=== PATIENT | female | born 1970 | race Caucasian/White ===

== ENCOUNTER 2023-06-28 07:15 | Outpatient (OUT) | payer OTHER, SELFPAY ==
--- NOTE | 2023-06-28 07:34 | CT_ITS ---
[address] [address] Patient Name: MARIN CORREA MRN: [id number] date: 1970 Sex: F Assigned Patient Location: MAMMO Current Patient Location: Accession/Order Number: [id number] Exam Date: 06/28/2023 07:55 Report Date: 07/01/2023 20:44 At the request of: DALTON MCCLELLAN Procedure: CT lung screening low-dose EXAMINATION: CT lung screening low-dose HISTORY: Well Adult, Z00.00 COMPARISON: No relevant comparison available. TECHNIQUE: Axial, Coronal, and Sagittal images were created without the administration of IV contrast material. Dose reduction techniques were achieved by using automated exposure control and/or adjustment of mA and/or kV according to patient size and/or use of iterative reconstruction technique. FINDINGS: LUNGS: Collection of multiple small calcified and noncalcified nodules within posterior lateral left lung base measuring up to 5 mm. Slightly more cephalad but still within basilar segments of left lower lobe is a 10 mm nodule with central calcification. No acute infiltrates or significant chronic interstitial changes. PLEURA: No mass, effusion, or pneumothorax. VASCULATURE: No abnormality. ALISA: Calcified left hilar lymph nodes suggestive of chronic granulomatous disease. MEDIASTINUM: No mass or pathologic adenopathy. CARDIAC: Mild atherosclerotic coronary artery disease. No pericardial effusion. AORTA: No aneurysm or dissection. CHEST WALL: No mass or axillary adenopathy BONES: No bone lesion or fracture. LIMITED ABDOMEN: No suspicious findings. Limited images of the upper abdomen. OTHER: Negative. CT/CT lung screening low-dose IMPRESSION: 1. Lung-RADS Category 3- Probably benign. Probably benign finding(s)- short term follow up suggested; includes nodules with a low likelihood of becoming a clinically active cancer. Six month LDCT. 2. Left lung base findings favor granulomatous reactions. Follow-up CT chest in 3 months is recommended to document stability. Electronically authenticated by: JOHN LONDONO Date: 07/01/2023 20:44
[2023-06-28 07:40] LABS: Basophils Absolute Auto 0.1 10^3/uL (0.0-0.1); Basophils Percent Auto 0.8 % (0.2-2.0); Eosinophils Absolute Auto 0.2 10^3/uL (0.0-0.7); Eosinophils Percent Auto 2.3 % (0.9-7.0); Hematocrit 43.3 % (36.0-48.0); Hemoglobin 14.2 g/dL (12.0-16.0); Immature Granulocytes Abs Auto 0.02 10^3/uL (0.00-0.03); Immature Granulocytes Pct Auto 0.2 % (0.0-0.5); Lymphocytes Absolute Auto 3.4 10^3/uL (1.2-3.8); Lymphocytes Percent Auto 36.7 % (20.5-60.0); Mean Corpuscular HGB Conc 32.8 g/dL (29.9-35.2); Mean Corpuscular Hemoglobin 30.3 pg (26.7-34.0); Mean Corpuscular Volume 92.5 fL (81.0-99.0); Mean Platelet Volume 9.6 fL (9.5-13.5); Monocytes Absolute Auto 0.7 10^3/uL (0.3-0.8); Monocytes Percent Auto 7.2 % (1.7-12.0); Neutrophils Absolute Auto 4.9 10^3/uL (1.4-6.5); Neutrophils Percent Auto 52.8 % (43.0-75.0); Platelet Count 224 10^3/uL (150-450); Red Blood Count 4.68 10^6/uL (4.20-5.40); Red Cell Distribution Width 12.1 % (11.0-15.0); White Blood Count 9.2 10^3/uL (4.0-11.0)
--- NOTE | 2023-06-28 07:55 | MM_ITS ---
Patient Name: MARIN CORREA MR#: [id number] : 1970 Exam Date: 06/28/2023 Ordering Doctor: DR Ever Palomares . RADIOLOGY REPORT PROCEDURE: MM TOMOSYNTHESIS SCREENING BI COMPARISON: None. INDICATIONS: Well Adult, Z00.00 Calculator Name NCI Breast Cancer Risk Assessment Tool 5 Year Breast Cancer Risk 0.90% Lifetime Breast Cancer Risk 6.60% Personal Breast Cancer No Personal Ovarian Cancer No Treatments None Family Cancers None LOCATION: [facility] BREAST COMPOSITION: Heterogeneously dense,which may obscure small masses. FINDINGS: DIAGNOSTIC CATEGORY 1--NEGATIVE. RIGHT BREAST: No significant suspicious finding. LEFT BREAST: No significant suspicious finding. RECOMMENDATIONS: ROUTINE MAMMOGRAM AND CLINICAL EVALUATION IN 12 MONTHS. PLEASE NOTE: A NORMAL MAMMOGRAM DOES NOT EXCLUDE THE POSSIBILITY OF BREAST CANCER. A CLINICALLY SUSPICIOUS PALPABLE LUMP SHOULD BE BIOPSIED. Dictated by: Cecil Aranda M.D. on 06/28/2023 at 11:55 Approved by: Cecil Aranda M.D. on 06/28/2023 at 11:59
[2023-06-28 08:36] LABS: Alanine Aminotransferase 21 U/L (14-59); Albumin Level 3.6 g/dL (3.4-5.0); Alkaline Phosphatase 66 U/L (46-116); Anion Gap 11.4; Aspartate Amino Transferase 11 U/L (15-37); BUN Creatinine Ratio 15.7; Bilirubin Total 0.6 mg/dL (0.2-1.0); Calcium 9.1 mg/dL (8.5-10.1); Carbon Dioxide 30.2 mmol/L (21.0-32.0); Chloride 103 mmol/L (98-107); Cholesterol 173 mg/dL (<=200); Estimated GFR (African America >60 (>=60); Estimated GFR (Non-African Ame >60 (>=60); Free T3 2.61 pg/mL (2.18-3.98); Globulin 3.5 g/dL; Glucose 193 mg/dL (74-106); HDL Cholesterol 43 mg/dL (40-60); Potassium 3.6 mmol/L (3.5-5.1); Sodium 141 mmol/L (136-145); Thyroid Stimulating Hormone 3.388 uIU/mL (0.358-3.740); Total Protein 7.1 g/dL (6.4-8.2); Triglycerides 154 mg/dL (<=150); VLDL CHOLESTEROL 30.8 mg/dL
[2023-06-28 10:01] LABS: Estimated Average Glucose 177 mg/dL; Glycohemoglobin A1C 7.8 % (4.5-6.2)
== END 2023-06-28 07:16 | disposition home or self-care (01) ==
LOC: MAMMO 07:18
PROVIDERS: PCP Family Medicine; Visit Provider Family Medicine
DX: Z00.00 Encounter for general adult medical examination without abnormal findings (principal); Z12.31 Encounter for screening mammogram for malignant neoplasm of breast; F17.219 Nicotine dependence, cigarettes, with unspecified nicotine-induced disorders
CPT/HCPCS: 36415; 71271; 77063; 77067; 80053; 80061; 82306; 83036; 83525; 83540; 84436; 84443; 84481; 85025

== ENCOUNTER 2023-09-16 06:36 | Outpatient (OUT) | payer OTHER, SELFPAY ==
--- OUTSIDE RECORDS SUMMARY | 2023-09-16 06:40 | XMS_ITS | CCD ---
Author Name Unknown Address [address] [place] [address] [address] [place] [id number] Organization [facility] Care Team Providers Care Recreation Leader Name Role Phone Dalton Palomares Primary Care Physician [phone] VY, DR HOFFMAN Admitting Unavailable HOY, DR HOFFMAN Attending Unavailable HOY, DR HOFFMAN Primary Care Unavailable HOY, DR HOFFMAN Consulting Unavailable HOY, DR HOFFMAN Admitting Unavailable HOY, DR HOFFMAN Attending Unavailable HOY, DR HOFFMAN Primary Care Unavailable HOY, DR HOFFMAN Consulting Unavailable ZIEBER, DR JOHN Villalta Consulting Unavailable HOY, DR HOFFMAN Admitting Unavailable HOY, DR HOFFMAN Attending Unavailable HOY, DR HOFFMAN Primary Care Unavailable HOY, DR HOFFMAN Consulting Unavailable KLIPPER, TG Consulting Unavailable Pocos, Tg Olivera Attending Unavailable Pocos, Tg Olivera Admitting Unavailable Pocos, Tg Olivera Referring Unavailable Dolce, Yogi Varela Referring Unavailable Dolce, Yogi Varela Attending Unavailable Dolce, Yogi Varela Admitting Unavailable Hajdari, Melba H Attending Unavailable DOLCE, YOGI Varela Attending Unavailable Allergies Allergy Classification Reported Allergen(s) Allergy Type Date of Onset Reaction(s) Facility (4 sources) Codeine; Translations: [codeine] Drug Allergy [facility] (4 sources) Penicillins; Translations: [penicillins] Drug allergy codeine [facility] Medications Current Medications Medication Drug Class(es) Dates Sig (Normalized) Sig (Original) acetaminophen 325 mg / HYDROcodone bitartrate 5 mg oral tablet (3 sources) Opioid Agonist Start: 03-26-2018 [place] 325 mg-5 mg oral tablet 1 tab(s), Oral, q6hr for pain, 7 tab(s), Refill(s) 0 Start Date: 03/26/18 Status: Ordered Invokana (3 sources) Sodium-Glucose Cotransporter 2 Inhibitor Start: 08-09-2014 Invokana Refills(s) 0, High blood sugar Start Date: 08/09/14 Status: Ordered Zyrtec (3 sources) Histamine-1 Receptor Antagonist Start: 07-25-2012 Zyrtec Daily, Refills(s) 0 Start Date: 07/25/12 Status: Ordered Erythromycin (3 sources) Macrolide, Macrolide Antimicrobial Start: 03-26-2018 erythromycin ophthalmic 0.5% ointment 0.5 in, Eye-Right, QID, 3.5 gram, Refill(s) 0, [id number] Start Date: 03/26/18 Status: Ordered Humalog (3 sources) Insulin Analog Start: 09-29-2013 Humalog SubCutaneous, Refills(s) 0, High blood sugar Start Date: 09/29/13 Status: Ordered naproxen 500 mg oral tablet (3 sources) Nonsteroidal Anti-inflammatory Drug Start: 06-18-2016 take 1 tablet by mouth twice daily as needed for pain Naprosyn 500 mg Tab 500 mg = 1 tab(s), Oral, BID, PRN for pain, # 20 tab(s), Refills(s) 0 Start Date: 06/18/16 Status: Ordered Non-Formulary Medication (3 sources) Start: 09-29-2013 Non-Formulary Medication Oral, Daily Start Date: 09/29/13 Status: Ordered omeprazole 40 mg delayed release oral capsule (3 sources) Proton Pump Inhibitor Start: 08-15-2010 Prilosec 40 mg Cap-EC Oral, BID, Refills(s) 0, Control of stomach acid Start Date: 08/15/10 Status: Ordered vilazodone hydrochloride 40 mg oral tablet (3 sources) Start: 08-09-2014 Viibryd 40 mg oral tablet Refills(s) 0, Depression Start Date: 08/09/14 Status: Ordered Problems Active Problems Problem Classification Problem Date Documented Date Episodic/Chronic Administrative/socia l admission (3 sources) Family tension 09-11-2013 Episodic Asthma (3 sources) Asthma 09-11-2013 Chronic Diabetes mellitus without complication (3 sources) Type 2 diabetes mellitus 12-18-2009 Chronic E Codes: Fall (1 source) Fall; Translations: [Unspecified fall, initial encounter] Onset: 06-19-2022 Episodic Esophageal disorders (3 sources) Gastroesophageal reflux disease 08-15-2010 Chronic Essential hypertension (3 sources) Hypertensive disorder 12-17-2013 Chronic Mood disorders (3 sources) Depressive disorder 09-11-2013 Chronic Other connective tissue disease (1 source) Pain in right hand; Translations: [PAIN IN RIGHT HAND] Onset: 07-11-2022 Episodic Other connective tissue disease (1 source) Pain in right finger(s); Translations: [PAIN IN RIGHT FINGERS] Onset: 07-11-2022 Episodic Other non-traumatic joint disorders (4 sources) Pain in right wrist; Translations: [PAIN IN RIGHT WRIST] Onset: 07-06-2022 Episodic Sprains and strains (1 source) Sprain of wrist; Translations: [Unspecified sprain of unspecified wrist, initial encounter] Onset: 06-19-2022 Episodic Substance-related disorders (3 sources) Smoker 06-18-2016 Chronic Comment on above: Added secondary to d ocumentation in Social History. Superficial injury; contusion (1 source) Contusion of lower leg; Translations: [Contusion of unspecified lower leg, initial encounter] Onset: 06-19-2022 Episodic Past or Other Problems Problem Classification Problem Date Documented Da te Episodic/Chronic Unclassified (3 sources) hystrerectomy 01-15-2010 Results Test Name Value Interpretation Reference Range Facility MRI Ankle w/o Contrast Right on 05-08-2023 MRI Ankle w/o Contrast Right Exam Date/Time: 05/07/2023 17:06 EST Reason for Exam: [id number], [id number] Other instability, right ankle Report IMPRESSION: OBLITERATION OF THE SINUS TARSI FAT SUGGESTING TARSAL SINUS LIGAMENTOUS COMPLEX INJURY. EXAM: MRI Ankle w/o Contrast Right HISTORY: Ankle pain and swelling since injury TECHNIQUE: Multisequence multiplanar MRI of the ankle was performed without contrast COMPARISON: Ankle radiographs 06/19/2022 FINDINGS: Achilles tendon is intact. The visualized plantar fascia is intact and is without thickening or nodularity. The tibialis posterior, flexor hallucis longus, and flexor digitorum longus tendons are intact. No space-occupying lesion within the tarsal tunnel. Peroneus longus and peroneus brevis tendons are intact. Extensor tendons are intact. The anterior and posterior tibiofibular ligaments, anterior and posterior talofibular ligaments, and calcaneofibular ligament are intact. Superficial and deep fibers of the deltoid ligament are intact. Spring ligament is intact. Obliteration of the sinus tarsi fat. No well defined or measurable cartilage defect of the tibial plafond, talar dome, or subtalar joint. No ankle joint effusion. No evidence of fracture or stress reaction of the visualized bones. Ordering Provider: Yogi Petit FINAL REPORT Dictated: 05/08/2023 2:38 pm Sunday Nunez DO Signed (Electronic Signature): 05/08/2023 2:38 pm Signed by: Sunday Nunez DO Transcribed by: MITESH Technologist: KIRBY Technical Comments None Normal [facility] Consent for Treatmenton Consent for Treatment [id number] 31 [id number] #1.00TIFF Normal [facility] RAD - MRI Screening Formon 1 07-07-2022 RAD - MRI Screening Form [id number]# 1.00TIFF Normal [facility] Physician Orderon 04-30-2023 Physician Order [id number] #1.00TIFF Normal [facility] Auto Diffon 02-21-2023 Basophils/100 WBC (Bld) 0.7 % Normal 0.0-2.0 [facility] Comment on above: Order Comment: Order Added by Discern Expert. Performed By: #### 2 111339, [id number], 3391981, 2950822, [id number] ####[facility] [address] [place] [address] Basophils/Leukocytes Auto (Bld) [Pure # fraction] 0.1 E9/L Normal 0.0-0.2 [facility] Comment on above: Order Comment: Order Added by Discern Expert. Performed By: #### 2 668246, 36846147, 0143633, 1302697, [id number] ####[facility] [address] [place] [address] Eosinophils/100 WBC (Bld) 1.7 % Normal 0.0-8.0 [facility] Comment on above: Order Comment: Order Added by Reji Expert. Performed By: #### 2 717657, 15085127, 1702839, 2207789, [id number] ####[facility] [address] [place] [address] Eosinophils/Leukocytes Auto (Bld) [Pure # fraction] 0.1 E9/L Normal 0.0-0.5 [facility] Comment on above: Order Comment: Order Added by Discern Expert. Performed By: #### 2 411457, 79600523, 5666973, 5462864, [id number] ####[address] [place] [address] Lymphocytes/100 WBC (Bld) 32.9 % Normal 14.0-50.0 [facility] Comment on above: Order Comment: Order Added by Reji Expert. Performed By: #### 2 563724, 07993776, 3866980, 0410875, 112772350 ####[address] [address] Lymphocytes/Leukocytes Auto (Bld) [Pure # fraction] 2.9 E9/L Normal 1.0-4.0 [facility] Comment on above: Order Comment: Order Added by Reji Expert. Performed By: #### 2 531453, 02286149, 4745088, 0424321, [id number] ####[address] [address] Monocytes/100 WBC (Bld) 6.9 % Normal 4.0-14.0 [facility] Comment on above: Order Comment: Order Added by Reji Expert. Performed By: #### 2 155243, 35826845, 2592870, 4271664, 708415434 ####[address] [address] Monocytes/Leukocytes Auto (Bld) [Pure # fraction] 0.6 E9/L Normal 0.2-1.0 [facility] Comment on above: Order Comment: Order Added by Reji Expert. Performed By: #### 2 746447, 36429860, 7611619, 0782549, [id number] ####[facility] [address] [place] [address] Neutrophils/100 WBC (Bld) 57.8 % Normal 36.0-75.0 [facility] Comment on above: Order Comment: Order Added by Discern Expert. Performed By: #### 2 649326, 19498873, 2866409, 3652264, 451310091 ####[facility] [address] [place] [address] Neutrophils/Leukocytes Auto (Bld) [Pure # fraction] 5.1 E9/L Normal 2.0-7.5 [facility] Comment on above: Order Comment: Order Added by Discern Expert. Performed By: #### 2 678209, 18683080, 9210416, 4202805, 282575550 ####[facility] [address] [place] [address] BMPon 02-21-2023 Anion gap [Moles/Vol] 12 mmol/L Normal 6-16 [facility] Comment on above: Performed By: #### 2 498998, 80146400, 1042760, 6691422, 592310446 ####[facility] [address] [place] [address] Calcium [Mass/Vol] 9.4 mg/dL Normal 8.9-11.1 [facility] Comment on above: Performed By: #### 2 554473, 53480172, 0787392, 5450245, 456446729 ####[facility] [address] [place] [address] Chloride [Moles/Vol] 104 mmol/L Normal 101-111 [facility] Comment on above: Performed By: #### 2 048692, 77156825, 6692026, 0557112, 019349370 ####[facility] [address] [place] [address] CO2 [Moles/Vol] 27 mmol/L Normal 21-31 [facility] Comment on above: Performed By: #### 2 837867, 93537208, 2638050, 3961632, 468056639 ####[facility] [address] [place] [address] Glucose [Mass/Vol] 188 mg/dL Normal 55-199 [facility] Comment on above: Result Comment: If t his glucose result represents a fasting glucose, interpretation should refer to the following reference range: 55-99 mg/dL Performed By: #### 2 789684, 42241456, 7015318, 7517869, 876837037 ####[facility] [address] [place] [address] Potassium [Moles/Vol] 3.7 mmol/L Normal 3.5-5.3 [facility] Comment on above: Performed By: #### 2 704439, 00973605, 5940449, 7922271, 844464237 ####[facility] [address] [place] [address] Sodium [Moles/Vol] 139 mmol/L Normal 135-145 [facility] Comment on above: Performed By: #### 2 774604, 96735232, 8397552, 0007542, 463518988 ####[facility] [address] [place] [address] Creatinine [Mass/Vol] 0.7 mg/dL Normal 0.5-1.3 [facility] Comment on above: Performed By: #### 2 139743, 63638398, 2415411, 8844236, 572229385 ####[facility] [address] [place] [address] Urea nitrogen [Mass/Vol] 17 mg/dL Normal 5-21 [facility] Comment on above: Performed By: #### 2 560513, 48386577, 6557281, 2696438, 142647066 ####[facility] [address] [place] [address] Urea nitrogen/Creatinine [Mass ratio] 24 No Units High 10-20 [facility] Comment on above: Performed By: #### 2 500273, 56225668, 3075509, 7383794, 860068051 ####[address] [address] CBC w/ Auto Diffon 3 Erythrocyte distribution width (RBC) [Ratio] 12.3 % Normal 10.9-14.2 [facility] Comment on above: Performed By: #### 2 368612, 88915331, 9820716, 0931702, 766822958 ####[address] [address] Hematocrit (Bld) [Volume fraction] 42.6 % Normal 34.0-46.0 [facility] Comment on above: Performed By: #### 2 112395, 69612478, 8246586, 7841990, 651749079 ####[address] [address] Hemoglobin (Bld) [Mass/Vol] 14.8 g/dL Normal 12.0-16.0 [facility] Comment on above: Performed By: #### 2 747980, 07531305, 3426063, 7007451, 600332630 ####[address] [address] MCH (RBC) [Entitic mass] 31.3 pg Normal 27.0-34.0 [facility] Comment on above: Performed By: #### 2 419845, 89110500, 1230100, 7914955, 684019520 ####[address] [address] MCHC (RBC) [Mass/Vol] 34.6 g/dL Normal 31.4-36.0 [facility] Comment on above: Performed By: #### 2 042794, 76536988, 7065000, 1038757, 221491842 ####[address] [address] MCV (RBC) [Entitic vol] 90.4 fL Normal 80.0-100.0 [facility] Comment on above: Performed By: #### 2 229308, 19496857, 3200252, 6532677, 723280723 ####[facility] [address] [place] [address] Platelet mean volume (Bld) [Entitic vol] 8.7 fL Normal 6.4-10.8 [facility] Comment on above: Performed By: #### 2 643183, 78707867, 4881160, 0026008, 746831748 ####[facility] [address] [place] [address] Platelets (Bld) [#/Vol] 219.0 E9/L Normal 150.0-500.0 [facility] Comment on above: Performed By: #### 2 951168, 56288539, 0811548, 5261341, 591240499 ####[address] [place] [address] RBC (Bld) [#/Vol] 4.7 E12/L Normal 4.3-5.9 [facility] Comment on above: Performed By: #### 2 482586, 83297316, 2214457, 5436240, [id number] ####[address] [place] [address] WBC corrected for nucl RBC Auto (Bld) [#/Vol] 8.8 E9/L Normal 4.0-11.0 [facility] Comment on above: Performed By: #### 2 380057, 91422127, 1327090, 3033401, 594765464 ####[facility] [address] [place] [address] CHEMISTRYOrdered By: SYSTEM SYSTEM on 02-21-2023 Anion gap [Moles/Vol] 12 mmol/L Normal 6 - 16 mEq/L [facility] Calcium [Mass/Vol] 9.4 mg/dL Normal 8.9 - 11. 1 mg/dL [facility] Chloride [Moles/Vol] 104 mmol/L Normal 101 - 1 11 mmol/L [facility] CO2 [Moles/Vol] 27 mmol/L Normal 21 - 31 mmol/L [facility] Remisol Creatinine [Mass/Vol] 0.7 mg/dL Normal 0.5 - 1.3 mg/dL [facility] Remisol GFR/1.73 sq M.predicted among non-blacks MDRD (S/P/Bld) [Vol rate/Area] 103 mL/min/1.73 m2 Normal >=59mL/min/1.7 3 m2 [facility] Chem S Glucose [Mass/Vol] 188 mg/dL Normal 55 - 199 mg/dL [facility] Remisol Potassium [Moles/Vol] 3.7 mmol/L Normal 3.5 - 5.3 mmol/L [facility] Remisol Sodium [Moles/Vol] 139 mmol/L Normal 135 - 145 mmol/L [facility] Remisol Urea nitrogen [Mass/Vol] 17 mg/dL Normal 5 - 21 mg/dL [facility] Remisol Urea nitrogen/Creatinine [Mass ratio] 24 mg/mg High 10 - 20 [facility] Remisol CHEMISTRYOrdered By: Francine Martins on 02-21-2023 HbA1c (Bld) [Mass fraction] 8.6 % High <=5.9% [facility] ChemAutoSS Consent for Treatmenton 01-30 Consent for Treatment [id number] #1.00CD:127 Normal [facility] HEMATOLOGYOrdered By: SYSTEM SYSTEM on 02-21-2023 Basophils/100 WBC (Bld) 0.7 % Normal 0.0 - 2.0 % [facility] HemeAutoSS Basophils/Leukocytes Auto (Bld) [Pure # fraction] 0.1 E9/L Normal 0.0 - 0.2 E9/L [facility]eAuto[facility] Eosinophils/100 WBC (Bld) 1.7 % Normal 0.0 - 8.0 % [facility]eAutoSS Eosinophils/Leukocytes Auto (Bld) [Pure # fraction] 0.1 E9/L Normal 0.0 - 0.5 E9/L [facility]eAuto[facility] Lymphocytes/100 WBC (Bld) 32.9 % Normal 14.0 - 50.0 % [facility]eAutoSS Lymphocytes/Leukocytes Auto (Bld) [Pure # fraction] 2.9 E9/L Normal 1.0 - 4.0 E9/L [facility] HemeAutoSS Monocytes/100 WBC (Bld) 6.9 % Normal 4.0 - 14.0 % [facility] HemeAutoSS Monocytes/Leukocytes Auto (Bld) [Pure # fraction] 0.6 E9/L Normal 0.2 - 1.0 E9/L [facility] HemeAutoSS Neutrophils/100 WBC (Bld) 57.8 % Normal 36.0 - 75.0 % [facility] HemeAutoSS Neutrophils/Leukocytes Auto (Bld) [Pure # fraction] 5.1 E9/L Normal 2.0 - 7.5 E9/L [facility] HemeAutoSS HEMATOLOGYOrdered By: Amy Ruvalcaba on 02-21-2023 Erythrocyte distribution width (RBC) [Ratio] 12.3 % Normal 10.9 - 14.2 % [facility] HemeAutoSS Hematocrit (Bld) [Volume fraction] 42.6 % Normal 34.0 - 46.0 % [facility] HemeAutoSS Hemoglobin (Bld) [Mass/Vol] 14.8 g/dL Normal 12.0 - 16.0 gm/dL [facility] HemeAutoSS MCH (RBC) [Entitic mass] 31.3 pg Normal 27.0 - 34.0 pg [facility] HemeAutoSS MCHC (RBC) [Mass/Vol] 34.6 g/dL Normal 31.4 - 36.0 gm/dL [facility] HemeAutoSS MCV (RBC) [Entitic vol] 90.4 fL Normal 80.0 - 100.0 fL [facility] HemeAutoSS Platelet mean volume (Bld) [Entitic vol] 8.7 fL Normal 6.4 - 10.8 fL [facility] HemeAutoSS Platelets (Bld) [#/Vol] 219.0 E9/L Normal 150.0 - 500.0 E9/L [facility] HemeAutoSS RBC (Bld) [#/Vol] 4.7 E12/L Normal 4.3 - 5.9 E12/L [facility] HemeAutoSS WBC corrected for nucl RBC Auto (Bld) [#/Vol] 8.8 E9/L Normal 4.0 - 11.0 E9/L [facility] HemeAutoSS BnnM3rue 02-21-2023 HbA1c (Bld) [Mass fraction] 8.6 % High <=5.9 [facility] Comment on above: Performed By: #### 2 475068, 84855682, 9613249, 2655902, [id number] ####[facility] [address] [place] [address] Physician Orderon 02-21-2023 Physician Order [id number]# 1.00CD:127 Normal [facility] eGFRon 02-21-2023 GFR/1.73 sq M.predicted among non-blacks MDRD (S/P/Bld) [Vol rate/Area] 103 mL/min/1.73 m2 Normal >=59 [facility] Comment on above: Order Comment: Order added by Discern Expert. Result Comment: [employer] clark kidney disease could be indicated at eGFR's of less than 60 mL/min/1.73m2. Kidney failure is indicated at less than 15 mL/min/1.73m2. Performed By: #### 2 405054, 77948340, 6424185, 3257315, [id number] ####[facility] [place] [address] CT WRIST RT WO CONon 023 CT WRIST RT WO CON EXAMINATION: CT WRIST RT WO CON HISTORY: Wrist pain following fall down steps COMPARISON: X-rays 07/06/2022 TECHNIQUE: Axial CT imaging is performed through the wrist. Sagittal and coronal reformatted/reconstr ucted sequences were presented in osseous windows only. Dose reduction techniques were achieved by using automated exposure control and/or adjustment of mA and/or kV according to patient size and/or use of iterative reconstruction technique. FINDINGS: IMPRESSION: Comminuted minimally displaced intra-articular fracture of the distal radius that communicates with both the dorsal and volar cortexes. Associated soft tissue edema. Radiocarpal joint effusion. Orthopedic surgical evaluation is necessary. Electronically authenticated by: TG CASTANEDA Date: 2022-07-12 15:18 Normal [facility] Coding Summary.on 06-20-2022 Coding Summary. [id number] Gh0bWw+PGhlYWQ+PE1FV TAsN49jbQIfoH9KQ5iXY U4FVFXTZUKZQB4RSN3do UQ3CFskM7JqpfIp QkvnbANcCO89WSl7JBK6 oAnyEFjsxX1zjGBtT5y4 DqMtLZ07yH00RMndWCBf XrK1JnZdhviffOCc S8fhZkDruAStGai+PHRh YmxlIHdpZHRoPScxMDAl JuNgeZuhFF9nEs7xXVZj LWNvbGxhcHNlOiBj u7imTTGcDCpgIS5fuFtl F7EfxKU6RJDxf1o9Ca20 dHI+AJAoKBL2cDikETnx l815ZrFri8gbQUR7 oRQrSXdkJVQ1B86fb0X1 EXMhLFUeELN2lSA4oS9o fRtaamftM7SvqSEcZxY5 LAB6rITdaF4uxAnn rjfsnA1dEpz+O27HMS7W BVOCXL3LQjk1U1ArSdyj dHI+LM65AMQoIK94uWCm bJSmq1youQn7EvHv WHOhBLM9zLvhQLyib1Km ZDTlR30muCMjz4S8RVPx mLtfwIWqHbDixBG0cX6o MLhhpyzqs0cbqwtb Aofqn4ldqg44uE81Z98e RAxfKXKjOPO1MPOzUQKo cZjnkw3plK0yIr6+IDxj t9yxb3rcqMw8GuUf PXJhjaYniWzqRRF8d9Iz Uz01O4VboMpxx1VeZpn8 ly30yIHag5S1pWO0GKwu DNOdwD5dHTswVhA3 OQLfNkKwcB81yQDfSZcx Rr4hkPmjvWdgKP6xRPBb vjlcCVVtyE6pBLUmqQLq nRhrLR5rKZRnotfy j695YyNvUEA7WLNnkDMf W8AdrM0vXgOxOWTdIHHm S2JzkESjGLjfN639VRbp EgH7HIJlabGaO2Gx EZRggBhyQiE3c2E8Ya3J s6VcyekdMIJ2VSnbPRBg NnQmAoSjPrU0N8ExWfn1 DLRudWqhZK1mT9Qx SJJyvbzczmvayDC6YKId LDCelQ52kCDxJWhyOg5b k8M9l808NKLlKUYtzQ43 Wk3zsYqkTELcvWOX uO1lzdhtz8cfqadrYpYl JIQjPBa9BKx5JJQfyRyg HcPuBFW6DuO3KXJ5bGLs iN6znIxesxwjaD0n Oyc+S28qdH1rMNL9LJW1 zqcoHAMswqFjUX36FK00 E9SkPyolcABvxQY+PGRp unFqaJwxPD4aQaHk b2ael9LqKSxwZ7JqJBCd IGtkOfh2GGPjWDE1rSO5 vW5bJYErTVidh7E6xIY8 M2XrrjEldt7br4ex IATvWYdnX47cyCTvy3Z5 YMThiMN0HHZfyWdsSnIt nH14Lci+UJAjzSxty5Nr Rbutk0vyg9edlAs2 IjMwJSIgdmFsaWduPSJ0 e0MvLy89T21bJQdxDOYe PQLwXKKzIVVfqVtsrp2o aD4wQk9+PGNvbCB3 eFS8rF2hVDSqZeG8OOme T489PcGqmFLoJgqpo6cf a7cblCo1BpUbEVAnvlNd zQiyTXM8d2NaQk49 V52jQZnnKZAaCTHdBZDf PWAjqDsunq0yvV5kDv0+ AP4zx6quzb66kZ58sIP+ TOKhTUD2jNbsMYex VQKlaJ5uRGsqQsJ1LCKu ZfQzzE23iZTzLBzhSh2j aUdazEyqAL4sJCXxnfoy f077QyLly7giWADp hYHvBHhkSYW6L12ui6A2 BARhUHFzRPZ5mXF8vS8c bGlnbjogbGVmdDsgdmVy bFvtOOdhKJquD257 IHRvcDsnPlBhdGllbnQg CbBjYGi8V1WqZlg7PZZr wTahCJ5agCDoARvhCk1p jGjgaTgxRO1ePWHh pacvf940PvFak4ndEEUu hKPkBLppRZQ2F79oc0F4 KAAcMBWtVBW2kQH3eE2r bGlnbjogbGVmdDsg nvGzmYvuLRqnZNaxE422 IHRvcDsnPkJpcnRoIERh wCM5NL15RV63dXXfa8L9 eDA7D2PxEZJuhclr oidykCZ6LZIkJWHfuI20 Xd0dhRqmZd9nGIRqLXM5 HPInhGYsH8LjlP8zRhLf YBZsRBCxM4EhfLEi VDtwW625IBtoOgD5RFLk jhRlC6PvPLQjkXlbCsC2 o7F5Oy6XN2Q9MU38VP68 iDGzn1B7xDN9S0Wb UXXeedxpunuapDL7KYHv FIBaaS71Bm2zeNelTa5w CLQiLCC9FPVggLDxN8Ol dB1kAqPhMBMdWKWh M6EacGYuVPggN644RQod JxC9LVHfilZqP3KwSHGh tUnjPiF3a0F4Dd0QXIq5 YL24LG79oMDxw7F1 rQU4O8RaGBLxsvszuzfh tJQ4FAMjIKJhsC93Ah4q wObuFt9fFCEwWHW2XCWg jQCiT7HrcR7rElUz FZRpCGYyP2IeqBMbSHid H887EQaxJaB7GLBppsUk K6IaYZJyaBmiSuC6o7G4 Vv8YYPBeZJ39PXK6 mQC8RR41FS79P7IzToxe dGFibGU+PHRhYmxlIHdp ZHRoPScxMDAlJyBzdHls GX7bNk9yWVTaSECu oRgujKQsPxXxx3xyGBEo VSlhWN6reMiqI9RneLX7 UQGzp3i5Zh23L44dK5Ro dXA+VLUxtPB8pSX2 uU8vQvGyUxZ3SZliX045 QxTkmJYnVxkmo6lbe8od wZx9XlW3ZUEsooXbeTag HKR4d9NxUt96P25q IHdpZHRoPSIxNSUiIHZh tVghwi8icS9fMk2+PGNv nVT7rEL0pU8mNtGwKdQ5 BIwsP740MnKcuGDb Oabpe2pvk3ghnWk1VmYu ZHOmayBabJjaTMQ7a0Wb Bp97X4NfhEdhq7QjLot3 as06qDDrx0G0tFL0 T8LyOOHuczhoaHMhzJrm GH0cNTChxhddCEVlrA7k OKCsI3s2RpXsKtC0WRku L6SzjkB7CVFenPCp BVvkQYE9Z21rc3A2UJAg TLMbLKQ4bHK4dI9cbXfy bjogbGVmdDsgdmVydGlj DKghHHqyO610BQEk zHesKJBkxK4pKRObvWTv mQtwDK0wCDSooduwKvJJ IU4EPnKqZJTBQbTAN8Af QTwvdGQ+PHRkIHN0 oJmmMVupRNShxA1jBVKv R0p0XwAyKxT4RXklY4Pw XFFdqqpyCa78kY1eEvEd NgV1DZwmB2TjchC0 SXShoAXcCXkpSBV7N38f a1Q0OJDcHIJbXAE6jUE8 bA5ufNzqebitnYMeaHul dmVydGljYWwtYWxp P946BADorZbuQfKbLdPr TwY7Dzc6J2FqQiz2XECw sPqbYE9iwONyDLvcCe3c eDmkqRwrUN0dQJRu acvwFBGvzE0bAFZleGVf xSrqHE5uOCHttknie687 HdAqEXM6IULfdWBjW3Ax wD7dNkNoVPAwKQBg R0TevLJpBQqfD128OAri OnV8RDToooWzJ4SyEFZe mQyrGbM5x3V2Fs39ONUQ ZWFyczwvdGQ+PHRk CAR2kLtbKJtsHYVhqF6j PNMbO4c9KxPcGvM1NQdb P9GvDMDknfyfUv14fY8y WuYkUnB9EDufO6Lk sbU1ZEGnqJSaPGjpMBE8 Y72ke1V7UKWpCYVmLGY2 gSP0kZ5igAdjjkawqTBj dDsgdmVydGljYWwt BAraT719ZTZlzNtwGfGq bWFsZTwvdGQ+PHRkIHN0 xOfoTKteSYLbnR1hDTSp K7y1FgUrRtG9NDsa P8TmICWmjbtlZy49cW0h IyNrZqP8MKinI1TmupQ0 YDAzeTUeGPudXRL9A09s a2R1KRLbCJKpOSC0 zFV2aW3uaZebnhogsPBm dDsgdmVydGljYWwtYWxp W272UCTezSwoDoWnZUPx QI2hwQauwTB+PC90 mp05R3GjBkksNzv0HPKd HMD1fMQ8iO3kKWFoHEuv y4R5yYC3R7JdgiDjzs4w j3rxMBChUBnoQ94o qJQii9E3AUVbzLQ1AXOq lCjfLeKwpV30Mcj+PGNv iNqid8ByGogxk9kwa8io eGl0PtUrNSOqflWf cBppSAC8u1XmAv49A68o IHdpZHRoPSIzMCUiIHZh aEpiot0ixF0fTl7+PGNv fSQ1eER4nQ1qUbWo EbY6HHhvF418QnHbeYYi Dcoeo1yha3ejxIb9GxBq TEAfomBuhJagGGI2a7Gk Qn03Q2OzmYeov9Te Uvf0an05oSMcy2X5mNB2 W5QmPBTaexawdVGhrUmn KF7jJTNxjhanXQTbjU8w LYIuT3g3AvSkKeQ9 EHyjM9LnlpX0OGEywFMv ZWBlcCVVwA0toeacf9dj ohinEeBeDUYxXJj5DWm7 LWFsaWduOiBsZWZ0 IbC1YXA6aIWneG9eyFab ckvxhT6oQsu+WKd9m4ce kCBdPD4ajVV3HA10JS12 jCWie7Y5sYY9B0Iv URHuifivftbneDH9UNCs YVVpgW46Db1fwEbwKr0w PASoIQR7AUFacOLpP7Op mD8yUyIrKTHxBVFe T6NanVUmRYngL734OQle NyG8NOUyzyBpC1OfUONh kFtsBiA5e8C3Ai0PVV59 BM27BJ47wMTki5H0 dPI6G3HzSIKfudipsofm aPV0ZTVlLVNtsH57Ah6m iHvuIm3kGEDiLDF7XMGy tFMvN9VkhM7dFeZt BHJrFKMbG5RpqLRrRKrt O342JFhhSoX3VCPaziIr I8FeLRZloIwbDkT4t1R9 Cd4FAu59PY71UW75 dPSbj0V8rSD5Z3EsWLEq ibvkcwrfzHM8EQYmOLEz yD21Jp2hxPiwHy2tWAEr IXT5BTIabVIqA5Rf lC1lUjSgPTMsOQBaG7Fu yBLtQSozJ746YWhxTtO8 LIAhpzWhM3PwRSJywDtw DoQ0i5W1Vs4HNPxk jzk4Q1LfTaijgOH+PC90 ARJvUJ19hTXwmKVzr8ib mFc9KdUmKKEaWHS5vTld NGoow7ZjTPPcE16r bGFw (more content not included)... Normal [facility] Consent for Treatmenton 06-01 Consent for Treatment [id number] 21 [id number] #[email or web address]:127 Normal [facility] Discharge Instructionson Discharge Instructions [id number] 212 [id number] 4#[email or web address]:127 Normal [facility] ED Clinical Summaryon 2021 ED Clinical Summary [address] [address] ED Clinical Summary Person Information Name: MARIN CORREA [facility] Age: 52 Years : 1970 Sex: Female Language: Wallisian PCP: Dalton Palomares MD Marital Status: Phone: [phone] Visit Id: Visit Reason: Trauma - minor; Knee pain-swelling; Fall; Wrist pain-swelling; FELL DOWN CONCRETE BASEMENT STAIRS ( APPROX 8 STEPS) Speciality: Acuity: 4 Enc Type: Emergency Med Service: Emergency Arrival: 06/19/2022 16:02:48 Discharge: 06/19/2022 18:33:33 LOS: 000 02:31 Checkin: 06/19/2022 16:02:48 Checkout: 06/19/2022 18:33:33 Dispo Type: Home (Routine DC) EVENTS: Event Name Event Status Request Date/Time Start Date/Time Complete Date/Time Arrive Complete 06/19/2022 16:02:48 06/19/2022 16:02:48 06/19/2022 16:02:48 Document Home Meds Request 06/19/2022 16:02:48 Triage Complete 06/19/2022 16:02:48 06/19/2022 16:14:49 06/19/2022 16:14:49 Bed Assign Complete 06/19/2022 16:15:18 06/19/2022 16:15:18 06/19/2022 16:15:18 Dr Exam Complete 06/19/2022 16:15:18 06/19/2022 16:16:47 06/19/2022 16:16:47 RN Exam Complete 06/19/2022 16:15:18 06/19/2022 17:05:10 06/19/2022 17:05:10 Registration Complete 06/19/2022 16:16:47 06/19/2022 16:34:23 06/19/2022 16:34:23 Dr Exam Complete 06/19/2022 16:16:56 06/19/2022 16:16:56 06/19/2022 16:16:56 Dr Exam Complete 06/19/2022 16:17:18 06/19/2022 16:17:18 06/19/2022 16:17:18 X-Ray Complete 06/19/2022 16:20:29 06/19/2022 16:26:45 06/19/2022 16:53:32 Meds Admin Complete 06/19/2022 16:20:29 06/19/2022 16:55:43 Reg Complete Request 06/19/2022 16:34:23 Reg Bed Request Complete 06/19/2022 16:34:23 06/19/2022 16:34:23 06/19/2022 16:34:23 Wet Read Request 06/19/2022 16:53:32 Trauma II Request 06/19/2022 17:03:17 Discharge Complete 06/19/2022 18:22:47 06/19/2022 18:33:38 06/19/2022 18:33:38 Transfer Complete 06/19/2022 18:33:38 06/19/2022 18:33:38 06/19/2022 18:33:38 ADDRESS: [address] [place] [id number] PHYS DOC NOTES: MEDICAL INFORMATION: Prescriptions Given: Medications to Continue with No Changes Other Medications acetaminophen-hydroc odone ([place] 325 mg-5 mg oral tablet) 1 Tablets By Mouth every 6 hours as needed for pain. Refills: 0. canagliflozin (Invokana) cetirizine (Zyrtec) every day. erythromycin ophthalmic (erythromycin ophthalmic 0.5% ointment) 0.5 Inch Right eye 4 times a day. Refills: 0. insulin lispro (Humalog) Subcutaneous. naproxen (Naprosyn 500 mg Tab) 1 Tablets By Mouth 2 times a day as needed for pain. Refills: 0. Non-Formulary Medication By Mouth every day. omeprazole (Prilosec 40 mg Cap-EC) By Mouth 2 times a day. vilazodone (Viibryd 40 mg oral tablet) PATIENT EDUCATION INFORMATION: Instructions: Wrist Sprain, Adult Follow up: With: Address: When: Dalton Palomares [address] [place] [address], [address] [place] [phone] Business (1) In 3 days 06/22/2022 DIAGNOSIS: Fall; Leg hematoma; Wrist sprain Normal [facility] ED Note-Physicianon 06-19-20 ED Note-Physician Basic Information Time Seen: Wes Walden PA-C 06/19/2022 16:16 Chief Complaint Pt fell down a flight of concrete stairs. R wrist pain and R knee to ankle pain. Does take a baby ASA daily. Denies head injury or LOC. History of Present Illness 52-year-old female comes to the ED for evaluation of injury status post fall. A few hours prior to arrival the patient slipped going down the basement stairs. She presents complaining of pain primarily to the right breast as well as to the right ankle. She denies striking her head or any loss of conscious. She denies any head, neck, back, chest or abdominal pain. No shortness of breath. No nausea or vomiting. No prior treatments. Review of Systems A 10 point review of systems is negative except as noted above. Medical and Surgical History: Reviewed and noted Social history: Lives at home Tobacco: Denies Physical Exam Vitals & Measurements T: 36.9 ?C(Oral) HR: 91(Peripheral) RR: 17 BP: 151/79 SpO2: 96% HT: 154 cm WT: 75 kg BMI: 31.62 Nurses notes and vital signs reviewed and patient is not hypoxic. General: The patient appears well, resting comfortably. Skin: Warm, dry. Head: Atraumatic. Neck: No JVD. Nontender, full range of motion Eye: Normal conjunctiva. Ears, Nose, Mouth, and Throat: Moist mucous membranes. Cardiovascular: Strong distal pulses. Chest wall: Nontender Respiratory: Respirations are nonlabored. Back: Normal range of motion. No midline tenderness Musculoskeletal: Diffuse tenderness over the right wrist. Strong pulses radius and ulna. No gross deformity. No tenderness over the hand or forearm. There is generalized tenderness over the right ankle with an abrasion along the right tibia. There is soft tissue swelling over the midshaft tibia area. There is no gross bony deformity. Good range of motion at the knee with no point tenderness over the fibular head. Strong distal pulses. Gastrointestinal: Soft nontender Urological: Neurological: Awake and alert. No focal deficits. Follows commands. Psychiatric: Cooperative. Medical Decision Making Patient presents with right wrist, ankle and leg pain after a fall. X-ray showed no fracture or dislocation. She is placed in a Velcro wrist splint for comfort. She remains neurovascular intact. She is declined any pain medications on the Motrin here. She is discharged home PCP follow-up. Patient was encouraged to return to the ED if symptoms worsen or change. Assessment/Plan Fall (W19.XXXA: Unspecified fall, initial encounter) Leg hematoma (S80.10XA: Contusion of unspecified lower leg, initial encounter) Wrist sprain (S63.509A: Unspecified sprain of unspecified wrist, initial encounter) Orders: ibuprofen, 600 mg = 1 tab(s), Tab, Oral, Once, Stop date 06/19/22 16:19:00 EST, STAT, Start date 06/19/22 16:19:00 EST, 06/19/22 16:19:00 EST Splint Application Wrist XR Ankle 3+ Views Right XR Tib/Fib Right 2 View XR Wrist 3+ Views Right Medications Administered Given ibuprofen 600 mg Tab, 600 mg, Oral Disposition Plan Patient Discharge Condition Disposition: Discharged home Condition: Improved and stable Counseled: Patient and/or family were counseled to workup, results, treatment plan and follow-up recommendations Discharge Prescription List Prescriptions No active prescription medications Follow-up With When Contact Information Dalton Palomares In 3 days 06/22/[address] [place], [place] [phone]- Business (1) Additional Instructions: Patient Education Wrist Sprain, Adult Attestation Patient seen and evaluated by the physician greenhouse assistant. Attending physician was present in the emergency department and supervised care. This visit was performed by both the physician and an APC. I performed all aspects of the MDM as documented. This report was transcribed using voice recognition software. Every effort was made to ensure accuracy, however, inadvertently computerized tractor trailer moving van driver mistakes may be present. Appropriate healthcare PPE was used in evaluating this patient. The patient was placed in a mask. The healthcare provider was wearing mask, gloves, and utilizing proper hand hygiene. All equipment was properly cleansed. Problem List/Past Medical History Ongoing Asthma Depression Diabetes mellitus type 2 GERD - Gastro-esophageal reflux disease Smoker Stress at home Historical HTN [Hypertension] hystrerectomy tubal Procedure/Surgical History hysterectomy, tubal ligation. Medications Inpatient No active inpatient medications Home erythromycin ophthalmic 0.5% ointment, 0.5 in, Eye-Right, QID Humalog, SubCutaneous Invokana Naprosyn 500 mg Tab, 500 mg= 1 tab(s), Oral, BID, PRN Non-Formulary Medication, Oral, Daily [place] 325 mg-5 mg oral tablet, 1 tab(s), Oral, q6hr, PRN Prilosec 40 mg Cap-EC, Oral, BID Viibryd 40 mg oral tablet Zyrtec, Daily Allergies codeine penicillins (codeine) Social History Alcohol - Denies (more content not included)... [facility] Comment on above: Result Comment: Elec tronically Signed By: Wes Walden PA-C\.br\Date and Time Signed: 06/19/22 18:50 EST\.br\Electronically Co-Signed By: Melba Perry M.D.\.br\Date and Time Co-Signed: 06/19/22 19:45 EST ED Patient Education Noteon 06-19-2022 ED Patient Education Note Orthopedics Wrist Sprain, Adult A wrist sprain is a stretch or tear in the strong, fibrous tissues (ligaments) that connect your wrist bones. There are three types of wrist sprains: ? Grade 1. In this type of sprain, the ligament is stretched more than normal. ? Grade 2. In this type of sprain, the ligament is partially torn. You may be able to move your wrist, but not very much. ? Grade 3. In this type of sprain, the ligament or muscle is completely torn. You may find it difficult or extremely painful to move your wrist even a little. What are the causes? A wrist sprain can be caused by using the wrist too much during sports, exercise, or at work. It can also happen with a fall or during an accident. What increases the risk? This condition is more likely to occur in people: ? With a previous wrist or arm injury. ? With poor wrist strength and flexibility. ? Who play contact sports, such as football or soccer. ? Who play sports that may result in a fall, such as skateboarding, biking, skiing, or snowboarding. ? Who do not exercise regularly. ? Who use exercise equipment that does not fit well. What are the signs or symptoms? Symptoms of this condition include: ? Pain in the wrist, arm, or hand. ? Swelling or bruised skin near the wrist, hand, or arm. The skin may look yellow or kind of blue. ? Stiffness or trouble moving the hand. ? Hearing a pop or feeling a tear at the time of the injury. ? A warm feeling in the skin around the wrist. How is this diagnosed? This condition is diagnosed with a physical exam. Sometimes an X-ray is taken to make sure a bone did not break. If your health care provider thinks that you tore a ligament, he or she may order an MRI of your wrist. How is this treated? This condition is treated by resting and applying ice to your wrist. Additional treatment may include: ? Medicine for pain and inflammation. ? A splint to keep your wrist still (immobilized). ? Exercises to strengthen and stretch your wrist. ? Surgery. This may be done if the ligament is completely torn. Follow these instructions at home: If you have a splint: ? Do not put pressure on any part of the splint until it is fully hardened. This may take several hours. ? Wear the splint as told by your health care provider. Remove it only as told by your health care provider. ? Loosen the splint if your fingers tingle, become numb, or turn cold and blue. ? If your splint is not waterproof: ? Do not let it get wet. ? Cover it with a watertight covering when you take a bath or a shower. ? Keep the splint clean. Managing pain, stiffness, and swelling ? If directed, put ice on the injured area. ? If you have a removable splint, remove it as told by your health care provider. ? Put ice in a plastic bag. ? Place a towel between your skin and the bag or between the splint and the bag. ? Leave the ice on for 20 minutes, 2?3 times per day. ? Move your fingers often to avoid stiffness and to lessen swelling. ? Raise (elevate) the injured area above the level of your heart while you are sitting or lying down. Activity ? Rest your wrist. Do not do things that cause pain. ? Return to your normal activities as told by your health care provider. Ask your health care provider what activities are safe for you. ? Do exercises as told by your health care provider. General instructions ? Take rtbc-lje-wpcekoc and prescription medicines only as told by your health care provider. ? Do not use any products that contain nicotine or tobacco, such as cigarettes and e-cigarettes. These can delay healing. If you need help quitting, ask your health care provider. ? Ask your health care provider when it is safe to drive if you have a splint. ? Keep all follow-up visits as told by your health care provider. This is important. Contact a health care provider if: ? Your pain, bruising, or swelling gets worse. ? Your skin becomes red, gets a rash, or has open sores. ? Your pain does not get better or it gets worse. Get help right away if: ? You have a new or sudden sharp pain in the hand, arm, or wrist. ? You have tingling or numbness in your hand. ? Your fingers turn white, very red, or cold and blue. ? You cannot move your fingers. This information is not intended to replace advice given to you by your health care provider. Make sure you discuss any questions you have with your health care provider. Document Released: 02/18/2015 Document Revised: 05/30/2018 Document Reviewed: 01/03/2017 Elsevier Patient Education ? 2019 [employer] Normal [facility] ED Patient Summaryon 022 ED Patient Summary [place] [id number] Patient Discharge Instructions Person Information Name: MARIN CORREA Age: 52 Years Arrival Date: 06/19/2022 16:02:48 Discharge Diagnosis: Fall; Leg hematoma; Wrist sprain Primary Care Physician: Dalton Palomares MD Provider Information Primary Provider: Melba Perry M.D. [facility]:Wes Walden PA-C The exam and treatment you received in the Emergency Department were for an urgent problem and are not intended as complete care. It is important that you follow up with a doctor, nurse practitioner, or physician?s greenhouse assistant for ongoing care. If your symptoms become worse or you do not improve as expected and you are unable to reach your usual health care provider, you should return to the Emergency Department. We are available 24 hours a day. MARIN CORREA has been given the following list of patient education materials, prescriptions and follow-up instructions: Follow-up Instructions: With: Address: When: Dalton Palomares [address] [place] [address], [facility] [place] [phone] Business (1) In 3 days 06/22/2022 In the event that this physician does not participate in your insurance network, please consult with your insurance company to find a nearby participating provider. Patient Education Materials: Wrist Sprain, Adult A MESSAGE TO ALL PATIENTS REGARDING OPIOIDS PRESCRIPTION OPIOIDS: WHAT YOU NEED TO KNOW Prescription opioids can be used to help relieve xhbwkxbx-uj-vrwets pain and are often prescribed following a surgery or injury, or for certain health conditions. These medications can be an important part of the treatment but also come with serious risks. It is important to work with your healthcare provider to make sure you are getting the safest, most effective care. WHAT ARE THE RISKS AND SIDE EFFECTS OF OPIOID USE? Prescription opioids carry serious risks of addiction and overdose, especially with prolonged use. An opioid overdose, often marked by slowed breathing, can cause sudden . The use of prescription opioids can have a number of side effects as well, even when taken as directed: ? Tolerance?meaning you might need to take more of the medication for the same pain relief ? Physical dependence?meaning you have symptoms of withdrawal when a medication is stopped ? Increased sensitivity to pain ? Constipation ? Nausea, vomiting, and dry mouth ? Sleepiness and dizziness ? Confusion ? Depression ? Low levels of testosterone that can result in lower sex drive, energy, and strength ? Itching and sweating RISKS ARE GREATER WITH: ? History of drug misuse, substance use disorder, or overdose ? Mental health conditions (such as depression or anxiety) ? Sleep apnea ? Older age (65 years and older) ? Avoid alcohol while taking prescription opioids. Also, unless specifically advised by your health care provider, medications to avoid include: ? Benzodiazepines (such as Xanax or Valium) ? Muscle relaxants (such as Soma or Flexeril) ? Hypnotics (such as Ambien or Lunesta) ? Other prescription opioids KNOW YOUR OPTIONS Talk to your health care provider about ways to manage your pain that don?t involve prescription opioids. Some of these options may actually work better and have fewer risks and side effects. Options may include: ? Pain relievers such as acetaminophen, ibuprofen, and naproxen ? Some medication that are also used for depression or seizures ? Physical therapy and exercise ? Cognitive behavioral therapy, a psychological, goal-directed approach, in which patients learn how to modify physical, behavioral, and emotional triggers of pain and stress. IF YOU ARE PRESCRIBED OPIOIDS FOR PAIN: ? Never take opioids in greater amounts or more often than prescribed. ? Follow up with your primary health care provider. o Work together to create a plan on how to manage your pain. o Talk about ways to help manage your pain that don?t involve prescription opioids. o Talk about any and all concerns and side effects. ? Help prevent misuse and abuse o Never sell or share prescription opioids. o Never use another person?s prescription opioids. ? Store prescription opioids in a secure place and out of reach of others (this may include visitors, children, friends, and family). ? Safely dispose of unused prescription opioids: Find your community drug take-back program or your pharmacy mail-back program, or flush them down the toilet, following guidance from the Food and Drug Administration (www.fda.gov/Drugs/R esourcesForYou). ? Visit www.cdc.gov/drugover dose to learn about the risks of opioids abuse and overdose. ? If you believe you may be struggling with addiction, tell your health healthcare translator and ask for guidance or call [facility] National Helpline at 9-583-906- (more content not included)... Normal [facility] ED Traumaon 06-19-2022 ED Trauma [id number] 8#1.00CD:127 Normal [facility] XR Ankle 3+ Views Righton XR Ankle 3+ Views Right Exam Date/Time: 06/19/2022 16:53 EST Reason for Exam: Pain Report IMPRESSION: NO DISPLACED FRACTURE OR SIGNIFICANT POSTTRAUMATIC COMPLICATION IDENTIFIED. EXAM: XR Ankle 3+ Views Right, XR Tib/Fib Right View DATE: 06/19/2022 CLINICAL HISTORY: Pain after recent falling. COMPARISON: None available. TECHNIQUE: AP, mediolateral, medial and external oblique radiographs of the right ankle, and AP and lateral radiographs of the right tibia and fibula were obtained. FINDINGS: There is no fracture, dislocation, worrisome bone destruction, radiodense foreign bodies, or significant degenerative changes. The visualized joint spaces and ankle mortise are intact. FINAL REPORT Dictated: 06/19/2022 7:04 pm Clint Lara MD Signed (Electronic Signature): 06/19/2022 7:04 pm Signed by: Clint Lara MD Transcribed by: MITESH Technologist: [facility] XR Tib/Fib Right 2 Viewon XR Tib/Fib Right 2 View Exam Date/Time: 06/19/2022 16:52 EST Reason for Exam: Pain, Traumatic Report PLEASE SEE XR Ankle 3+ Views Right REPORT DATED: 06/19/2022. FINAL REPORT Dictated: 06/19/2022 7:05 pm Clint Lara MD Signed (Electronic Signature): 06/19/2022 7:05 pm Signed by: Clint Lara MD Transcribed by: MITESH Technologist: [facility] XR Wrist 3+ Views Righton XR Wrist 3+ Views Right Exam Date/Time: 06/19/2022 16:53 EST Reason for Exam: Pain, Traumatic Report IMPRESSION: NEGATIVE RIGHT WRIST. CLINICAL INFORMATION: Pain, Traumatic COMPARISON: None. FINDINGS: Four views of the right wrist were obtained. The bones of the right wrist appear normal without evidence of fracture or dislocation. FINAL REPORT Dictated: 06/19/2022 4:59 pm Nik Lacy MD Signed (Electronic Signature): 06/19/2022 4:59 pm Signed by: Nik Lacy MD Transcribed by: MITESH Technologist: [facility] Physician Orderon 05-18-2022 Physician Order [id number] 7#1.00CD:127 [facility] Pre-Certification Formon Pre-Certification Form [id number] 2#1.00CD:127 [facility] Vital Signs Date Time Vital Sign Value Performing Clinician Yany tamayo 06-19-2022 18:16-0500 Diastolic blood pressure 87 mm[Hg] [facility] 06-19-2022 18:16-0500 Heart rate 91 /min [facility] 06-19-2022 18:16-0500 Mean blood pressure 106 mm[Hg] [facility] 06-19-2022 18:16-0500 Respiratory rate 17 /min [facility] 06-19-2022 18:16-0500 SaO2% (BldA) [Mass fraction] 95 % [facility] 06-19-2022 18:16-0500 Systolic blood pressure 144 mm[Hg] [facility] 06-19-2022 17:16-0500 Diastolic blood pressure 81 mm[Hg] [facility] 06-19-2022 17:16-0500 Heart rate 88 /min [facility] 06-19-2022 17:16-0500 Respiratory rate 16 /min [facility] 06-19-2022 17:16-0500 SaO2% (BldA) [Mass fraction] 96 % [facility] 06-19-2022 17:16-0500 Systolic blood pressure 149 mm[Hg] [facility] 06-19-2022 16:16-0500 Diastolic blood pressure 79 mm[Hg] [facility] 06-19-2022 16:16-0500 Heart rate 91 /min [facility] 06-19-2022 16:16-0500 Respiratory rate 17 /min [facility] 06-19-2022 16:16-0500 SaO2% (BldA) [Mass fraction] 96 % [facility] 06-19-2022 16:16-0500 Systolic blood pressure 151 mm[Hg] [facility] 06-19-2022 16:09-0500 Body temperature 98.42 [degF] [facility] Encounters Encounter Date Encounter Type Care Provider Facility Start: 05-13-2023 End: 05-13-2023 ambulatory YOGI PETIT Not Available Start: 05-07-2023 End: 05-08-2023 ambulatory Yogi Petit [facility] Start: 02-21-2023 End: 02-22-2023 ambulatory Tg Clark Facility:[facility] Start: 02-21-2023 End: 02-21-2023 Patient encounter procedure Tg Clark [facility] Start: 07-16-2022 End: 07-17-[address] DALTON PALOMARES Facility:[facility] Start: 07-12-2022 End: 07-13-[address] DALTON PALOMARES Facility: Start: 07-06-2022 End: 07-07-[address] DALTON PALOMARES Facility: Start: 06-19-2022 End: 06-19-2022 [facility] Start: 06-19-2022 End: 06-19-2022 Emergency department patient visit [facility] Art Perry [facility] Start: 05-18-2022 End: 06-15-2022 Pre-admission assessment Dalton Palomares [facility] Procedures Date Procedure Procedure Detail Performing Clinician H/O: tubal ligation tubal Dalton Clementey Hysterectomy Dalton Hoy Other bilateral liga tion and division of fallopian tubes Dalton Palomares Payers Date Payer Category Payer Medicaid [id number] 1970 Unknown [id number] 2.16.84 [id number] 1970 Unknown [id number] 2.16.84 [id number] 1968 Unknown [id number] 2.16.84 [id number] 1968 Unknown [id number] 2.16. [id number] 1968 Unknown [id number] 2.16.8 [id number] 1968 Unknown [id number] 2.16.8 [id number] 1968 Unknown [id number] 2.16.8 [id number] 1968 Unknown [id number] 1959 Unknown [id number] Social History Date Type Detail Facility Start: 03-26-2018 End: 06-19-2022 Tobacco smoking status Heavy tobacco smoker (finding) [facility] Sex Assigned At Female [facility] Functional Status Date Assessment Result Facility 06-19-2022 Functional Status N/A [facility] Clinical Note 07-17-2022 Note Date & Type Note Facility 07-17-2022 Note PROCEDURE: XR FOOT R T MIN 3 VIEWS COMPARISON: None. HISTORY: Pain in right foot FINDINGS: BONES:No fracture, acute abnormality, or significant arthropathy. SOFT TISSUES:Negative. No visible soft tissue swelling. EFFUSION:None visible. OTHER: Negative. IMPRESSION: No acute abnormality Electronically authenticated by: TG FIERRO Date: 2022-07-17 08:50 [facility] Clinical Note 07-06-2022 Note Date & Type Note Facility 07-06-2022 Note PROCEDURE: XR HAND R T MIN 3V, XR WRIST RT MIN 3 V HISTORY: Pain in right hand and wrist after falling down steps. COMPARISON: None. FINDINGS: BONES:Small, nondisplaced cortical irregularity along posterior margin of distal radial metaphysis, possibly representing an impaction or avulsion fracture fragment. SOFT TISSUES:No visible soft tissue swelling. EFFUSION:None visible. OTHER: Negative. IMPRESSION: 1. No acute bone abnormality of the hand. 2. Suspect small cortical fracture fragment along dorsal margin of distal radial metaphysis; impaction versus avulsion fragment. Electronically authenticated by: JOHN LONDONO Date: 2022-07-06 14:25 [facility] Clinical Note 07-06-2022 Note Date & Type Note Facility 07-06-2022 Note PROCEDURE: XR HAND R T MIN 3V, XR WRIST RT MIN 3 V HISTORY: Pain in right hand and wrist after falling down steps. COMPARISON: None. FINDINGS: BONES:Small, nondisplaced cortical irregularity along posterior margin of distal radial metaphysis, possibly representing an impaction or avulsion fracture fragment. SOFT TISSUES:No visible soft tissue swelling. EFFUSION:None visible. OTHER: Negative. IMPRESSION: 1. No acute bone abnormality of the hand. 2. Suspect small cortical fracture fragment along dorsal margin of distal radial metaphysis; impaction versus avulsion fragment. Electronically authenticated by: JOHN LONDONO Date: 2022-07-06 14:25 [facility] Discharge instructions 06-19-2022 Note Date & Type Note Facility 06-19-2022 Hospital Discharg e instructions Patient Education 06/19/2022 18:33:39 Wrist Sprain, Adult Wrist Sprain, Adult A wrist sprain is a stretch or tear in the strong, fibrous tissues (ligaments) that connect your wrist bones. There are three types of wrist sprains: Grade 1. In this type of sprain, the ligament is stretched more than normal. Grade 2. In this type of sprain, the ligament is partially torn. You may be able to move your wrist, but not very much. Grade 3. In this type of sprain, the ligament or muscle is completely torn. You may find it difficult or extremely painful to move your wrist even a little. What are the causes? A wrist sprain can be caused by using the wrist too much during sports, exercise, or at work. It can also happen with a fall or during an accident. What increases the risk? This condition is more likely to occur in people: With a previous wrist or arm injury. With poor wrist strength and flexibility. Who play contact sports, such as football or soccer. Who play sports that may result in a fall, such as skateboarding, biking, skiing, or snowboarding. Who do not exercise regularly. Who use exercise equipment that does not fit well. What are the signs or symptoms? Symptoms of this condition include: Pain in the wrist, arm, or hand. Swelling or bruised skin near the wrist, hand, or arm. The skin may look yellow or kind of blue. Stiffness or trouble moving the hand. Hearing a pop or feeling a tear at the time of the injury. A warm feeling in the skin around the wrist. How is this diagnosed? This condition is diagnosed with a physical exam. Sometimes an X-ray is taken to make sure a bone did not break. If your health care provider thinks that you tore a ligament, he or she may order an MRI of your wrist. How is this treated? This condition is treated by resting and applying ice to your wrist. Additional treatment may include: Medicine for pain and inflammation. A splint to keep your wrist still (immobilized). Exercises to strengthen and stretch your wrist. Surgery. This may be done if the ligament is completely torn. Follow these instructions at home: If you have a splint: Do not put pressure on any part of the splint until it is fully hardened. This may take several hours. Wear the splint as told by your health care provider. Remove it only as told by your health care provider. Loosen the splint if your fingers tingle, become numb, or turn cold and blue. If your splint is not waterproof: ?Do not let it get wet. ?Cover it with a watertight covering when you take a bath or a shower. Keep the splint clean. Managing pain, stiffness, and swelling If directed, put ice on the injured area. ?If you have a removable splint, remove it as told by your health care provider. ?Put ice in a plastic bag. ?Place a towel between your skin and the bag or between the splint and the bag. ?Leave the ice on for 20 minutes, 2 3 times per day. Move your fingers often to avoid stiffness and to lessen swelling. Raise (elevate) the injured area above the level of your heart while you are sitting or lying down. Activity Rest your wrist. Do not do things that cause pain. Return to your normal activities as told by your health care provider. Ask your health care provider what activities are safe for you. Do exercises as told by your health care provider. General instructions Take pqro-hep-dzzjgei and prescription medicines only as told by your health care provider. Do not use any products that contain nicotine or tobacco, such as cigarettes and e-cigarettes. These can delay healing. If you need help quitting, ask your health care provider. Ask your health care provider when it is safe to drive if you have a splint. Keep all follow-up visits as told by your health care provider. This is important. Contact a health care provider if: Your pain, bruising, or swelling gets worse. Your skin becomes red, gets a rash, or has open sores. Your pain does not get better or it gets worse. Get help right away if: You have a new or sudden sharp pain in the hand, arm, or wrist. You have tingling or numbness in your hand. Your fingers turn white, very red, or cold and blue. You cannot move your fingers. This information is not intended to replace advice given to you by your health care provider. Make sure you discuss any questions you have with your health care provider. Document Released: 02/18/2015 Document Revised: 05/30/2018 Document Reviewed: 01/03/2017 [employer] Patient Education 2020 [employer]. Follow Up Care 06/19/2022 16:04:22 With:Dalton Palomares Address: [address] [place] [id number] Business (1) When:06/22/2022 18:22:44 [facility] Evaluation + Plan note 06-19-2022 Note Date & Type Note Facility 06-19-2022 Evaluation + Plan note Extrac errol from: Title:ED Note Author:Wes Walden PA-C te:06/19/22 Fall (W19.XXXA: Unspecified fall, initial encounter) Leg hematoma (S80.10XA: Contusion of unspecified lower leg, initial encounter) Wrist sprain (S63.509A: Unspecified sprain of unspecified wrist, initial encounter) Orders: ibuprofen, 600 mg = 1 tab(s), Tab, Oral, Once, Stop date 06/19/22 16:19:00 EST, STAT, Start date 06/19/22 16:19:00 EST, 06/19/22 16:19:00 EST Splint Application Wrist XR Ankle 3+ Views Right XR Tib/Fib Right 2 View XR Wrist 3+ Views Right [facility] Evaluation + Plan note Note Date & Type Note Facility Evaluation + Plan note No data available for this section [facility] Hospital Discharge instructions Note Date & Type Note Facility Hospital Discharge instructions No data available for this section [facility] Progress note Note Date & Type Note Facility Progress note No data available for this section [facility] Summary Purpose Family History No Family History Records FoundNo Family History Records FoundNo Family History Records FoundNo Family History Records Found Advance Directives No Advanced Directives Records FoundNo Advanced Directives Records FoundNo Advanced Directives Records FoundNo Advanced Directives Records Found Additional Source Comments Patient Care team informatio n (unrecognized section and content) Personnel Name: Dalton Palomares MD Address: Address: [address] [place] [address] Personnel Name: Dalton Palomares MD Address: Address: [address] [place] [address] Personnel Name: Dalton Palomares MD Address: Address: [address] [place] [address] INFORMATION SOURCE (unrecogn ized section and content) DATE CREATED AUTHOR 07/17/2022 [facility] DATE CREATED AUTHOR AUTHOR'S ORGANIZ ATION 05/01/2023 [facility] DATE CREATED AUTHOR AUTHOR'S ORGANIZ ATION 05/08/2023 [facility] DATE CREATED AUTHOR AUTHOR'S ORGANIZ ATION 05/14/2023 [facility] EPIC FOR RECORDS PERTAINING TO PATIENTS WHO ARE OR HAVE BEEN ENROLLED IN A CHEMICAL DEPENDENCY/SUBSTANCEABUSE PROGRAM, SOME INFORMATION MAY BE OMITTED. This clinical summary was aggregated from multiple sources. Caution should be exercised in using it in the provision of clinical care. This summary normalizes information from multiple sources, and as a consequence, information in this document may materially change the coding, format and clinical context of patient data. In addition, data may be omitted in some cases. CLINICAL DECISIONS SHOULD BE BASED ON THE PRIMARY CLINICAL RECORDS. [facility] [employer] [facility]. provides no warranty or guarantee of the accuracy or completeness of information in this document.
--- NOTE | 2023-09-16 06:50 | US_ITS ---
The [address] [address] Patient Name: MARIN CORREA MRN: [id number] date: 1970 Sex: F Assigned Patient Location: US Current Patient Location: US Accession/Order Number: [id number] Exam Date: 09/16/2023 06:55 Report Date: 09/16/2023 07:24 At the request of: DALTON MCCLELLAN Procedure: US right upper quadrant EXAM: US right upper quadrant HISTORY: . Right Upper Quadrant Pain R10.11 . COMPARISON: None. TECHNIQUE: Grayscale and color imaging was performed FINDINGS: The pancreas appears normal. The liver is normal in size. No masses are noted. Color-flow is noted in the portal and hepatic veins. The gallbladder appears normal with no stones or sludge identified. Common bile duct is normal measuring 3 mm. Right kidney measures 11.9 x 5 x 6.1 cm. Color-flow is noted. No solid renal cortical masses or hydronephrosis is noted. There is a 5 mm nonobstructing calculus involving the upper pole of the right kidney. No fluid is noted in the right upper quadrant. US/US right upper quadrant IMPRESSION: 1. 5 mm nonobstructing right renal calculus. 2. The remainder the right upper quadrant was unremarkable. Electronically authenticated by: TG BOB Date: 09/16/2023 07:24
[2023-09-16 07:01] LABS: Basophils Absolute Auto 0.1 10^3/uL (0.0-0.1); Basophils Percent Auto 0.5 % (0.2-2.0); Eosinophils Absolute Auto 0.2 10^3/uL (0.0-0.7); Eosinophils Percent Auto 1.6 % (0.9-7.0); Hematocrit 41.8 % (36.0-48.0); Hemoglobin 13.9 g/dL (12.0-16.0); Immature Granulocytes Abs Auto 0.02 10^3/uL (0.00-0.03); Immature Granulocytes Pct Auto 0.2 % (0.0-0.5); Lymphocytes Absolute Auto 3.8 10^3/uL (1.2-3.8); Mean Corpuscular HGB Conc 33.3 g/dL (29.9-35.2); Mean Corpuscular Hemoglobin 30.8 pg (26.7-34.0); Mean Corpuscular Volume 92.5 fL (81.0-99.0); Mean Platelet Volume 9.6 fL (9.5-13.5); Monocytes Absolute Auto 0.8 10^3/uL (0.3-0.8); Neutrophils Absolute Auto 6.3 10^3/uL (1.4-6.5); Neutrophils Percent Auto 56.7 % (43.0-75.0); Platelet Count 208 10^3/uL (150-450); Red Blood Count 4.52 10^6/uL (4.20-5.40); Red Cell Distribution Width 12.1 % (11.0-15.0); White Blood Count 11.1 10^3/uL (4.0-11.0)
[2023-09-16 07:50] LABS: Estimated Average Glucose 194 mg/dL; Glycohemoglobin A1C 8.4 % (4.5-6.2)
[2023-09-16 08:02] LABS: Alanine Aminotransferase 21 U/L (14-59); Albumin Globulin Ratio 1.1; Albumin Level 3.5 g/dL (3.4-5.0); Alkaline Phosphatase 67 U/L (46-116); Anion Gap 10.7; Aspartate Amino Transferase 12 U/L (15-37); BUN Creatinine Ratio 11.4; Bilirubin Total 0.6 mg/dL (0.2-1.0); Calcium 8.7 mg/dL (8.5-10.1); Carbon Dioxide 31.6 mmol/L (21.0-32.0); Chloride 105 mmol/L (98-107); Cholesterol 163 mg/dL (<=200); Estimated GFR (African America >60 (>=60); Estimated GFR (Non-African Ame >60 (>=60); Free T3 2.44 pg/mL (2.18-3.98); Globulin 3.3 g/dL; Glucose 153 mg/dL (74-106); HDL Cholesterol 41 mg/dL (40-60); Potassium 3.3 mmol/L (3.5-5.1); Sodium 144 mmol/L (136-145); Thyroid Stimulating Hormone 1.671 uIU/mL (0.358-3.740); Total Protein 6.8 g/dL (6.4-8.2); Triglycerides 155 mg/dL (<=150)
== END 2023-09-16 06:37 | disposition home or self-care (01) ==
LOC: US 06:38
PROVIDERS: PCP Family Medicine; Visit Provider Family Medicine
DX: R10.11 Right upper quadrant pain (principal); R06.83 Snoring; E10.9 Type 1 diabetes mellitus without complications; D64.9 Anemia, unspecified; N20.0 Calculus of kidney
CPT/HCPCS: 36415; 76705; 80053; 80061; 82306; 83036; 83540; 84436; 84443; 84481; 85025

== ENCOUNTER 2024-05-07 09:06 | Outpatient (OUT) | payer OTHER, SELFPAY ==
--- OUTSIDE RECORDS SUMMARY | 2024-05-07 09:24 | XMS_ITS | CCD ---
Author Organization [facility] Care Team Providers Care Terra Cotta Roofer Helper Name Role Phone Dalton Palomares Primary Care Physician [phone] JELANI, DR HOFFMAN Admitting Unavailable ESAUY, DR HOFFMAN Attending Unavailable ESAUY, DR HOFFMAN Primary Care Unavailable HOY, DR HOFFMAN Consulting Unavailable HOY, DR HOFFMAN Admitting Unavailable HOY, DR HOFFMAN Attending Unavailable JELANI, DR HOFFMAN Primary Care Unavailable JELANI, DR HOFFMAN Consulting Unavailable ZIEBER, DR JOHN Villalta Consulting Unavailable JELANI, DR HOFFMAN Admitting Unavailable HOY, DR HOFFMAN Attending Unavailable HOY, DR HOFFMAN Primary Care Unavailable HOY, DR HOFFMAN Consulting Unavailable KLTG RODRIGUEZ Consulting Unavailable YOGI PETIT Attending Unavailable Dalton Palomares MD Primary Care Provider [phone] Tg Clark Admitting Unavailable PocosTg Attending Unavailable PocTg gutiérrez Referring Unavailable Yogi Petit Admitting Unavailable DolYogi mendzoa Attending Unavailable Yogi Petit Referring Unavailable Dalton Palomares Admitting Unavailable Dalton Palomares Attending Unavailable Dalton Palomares MD Primary Care Provider [phone] Allergies Allergy Classification Reported Allergen(s) Allergy Type Date of Onset Reaction(s) Facility (6 sources) Codeine; Translations: [codeine] Drug Allergy 5 Anaphylaxis [facility] (7 sources) Penicillins; Translations: [penicillins] Drug allergy 5 Anaphylaxis [facility] (1 source) Codeine Drug Allergy 4 Anaphylaxis [facility] (2 sources) Doxycycline Drug Allergy 3 Tachycardia, Vomiting, GI intolerance [facility] (2 sources) Sulfonamides (Antibiotic) Propensity to adverse reactions to drug 3 Unknown [facility] Medications Current Medications Medication Drug Class(es) Dates Sig (Normalized) Sig (Original) acetaminophen 325 mg / HYDROcodone bitartrate 5 mg oral tablet (4 sources) Opioid Agonist Start: 03-26-2018 [place] 325 mg-5 mg oral tablet 1 tab(s), Oral, q6hr for pain, 7 tab(s), Refill(s) 0 Start Date: 03/26/18 Status: Ordered albuterol 0.83 mg/ml inhalation solution (2 sources) beta2-Adrenergic Agonist take 2.5 mg by inhalation every six hours as needed for wheezing albuterol (PROVENTIL,VENTOLI N) 2.5 mg /3 mL (0.083 %) nebulizer solution Inhale 3 mL (2.5 mg total) by nebulization every 6 (six) hours as needed for wheezing. 0 Active take 1 puff(s) by in halation every four hours as needed for wheezing albuterol (PROVENTIL HFA;VENTOLIN HFA) 9 0 mcg/actuation inhaler Inhale 1 puff every 4 (four) hours as needed for wheezing. 0 Active amitriptyline hydrochloride 25 mg oral tablet (1 source) Tricyclic Antidepressant amitriptyline (Elavil) 25 MG tablet 1 (one) time each day at the same time. Active aspirin 81 mg delayed release oral tablet (2 sources) Platelet Aggregation Inhibitor, Nonsteroidal Anti-inflammatory Drug aspirin 81 MG EC tablet 1 (one) time each day at the same time. Active atenolol 50 mg oral tablet (3 sources) beta-Adrenergic Dolly Start: 03-11-20 take 1 tablet by mouth in the morning atenolol (Tenormin) 50 MG tablet Take 50 mg by mouth in the morning. 03/11/2023 Active atenolol (Tenorm in) 25 MG tablet 1 (one) time each day at the same time. Active azithromycin 250 mg oral tablet (1 source) Macrolide Antimicrobial azithrom ycin (Zithromax Z-Rush) 250 MG tablet as directed Orally Active blood-glucose meter kit (1 source) blood-glucose me ter kit by other route. Use as instructed 0 Active calcipotriene 0.05 mg/ml topical cream (1 source) Vitamin D Analog calcipotriene ( Dovonex) 0.005 % cream APPLY SPARINGLY TO AFFECTED AREA TWICE A DAY for 30 Active Invokana (4 sources) Sodium-Glucose Cotransporter 2 Inhibitor Start: 08-09-2014 Invokana Refills(s) 0, High blood sugar Start Date: 08/09/14 Status: Ordered Zyrtec (6 sources) Histamine-1 Receptor Antagonist Start: 07-25-2012 Zyrtec Daily, Refills(s) 0 Start Date: 07/25/12 Status: Ordered cetirizine (ZyrT EC) 10 MG tablet 1 (one) time each day at the same time. Active Continuous Blood Gluc Sensor (Dexcom G6 Sensor) misc (1 source) Start: 01-29-2023 Continuous Blo od Gluc Sensor (Dexcom G6 Sensor) misc CHANGE SENSOR EVERY 10 DAYS 01/29/2023 Active Continuous Blood Gluc Transmit (Dexcom G6 transmitter) misc (1 source) Start: 03-21-2023 Continuous Blo od Gluc Transmit (Dexcom G6 transmitter) misc CHANGE EVERY 90 DAYS. ICD 10 E10.65 03/21/2023 Active dexamethasone 1 mg/ml / neomycin 3.5 mg/ml / polymyxin b [id number] unt/ml ophthalmic suspension (1 source) Aminoglycoside Antibacterial, Polymyxin-class Antibacterial, Corticosteroid laslzhyn-ghjrwrgrp-p exAMETHasone (Maxitrol) 0.1 % ophthalmic suspension every 6 (six) hours. Active Erythromycin (4 sources) Macrolide, Macrolide Antimicrobial Start: 03-26-2018 erythromycin ophthalmic 0.5% ointment 0.5 in, Eye-Right, QID, 3.5 gram, Refill(s) 0, [facility]/pharmacy #[id number] Start Date: 03/26/18 Status: Ordered fluticasone propionate 0.05 mg/actuat metered dose nasal spray (1 source) Corticosteroid Flonase Allergy Relief 50 MCG/ACT nasal spray 1 (one) time each day at the same time. Active gabapentin 100 mg oral capsule (2 sources) Anti-epileptic Agent Start: 10-29-2022 gabapenti n (Neurontin) 100 MG capsule every 12 (twelve) hours. 10/29/2022 Active take 2 capsules by m outh in the morning, then take 2 capsules by mouth twice daily at bedtime gabapentin (NEURONTIN) 100 mg capsule Ta ke 2 capsules (200 mg total) by mouth in the morning and 2 capsules (200 mg total) before bedtime. Twice a day for 30 days. 0 Active insulin aspart (NovoLOG) 100 UNIT/ML injection (1 source) Start: 07-04-2022 insulin aspart (NovoLOG) 100 UNIT/ML injection USE WITH INSULIN PUMP EXPECT UP TO 150 UNITS DAILY USE 07/04/2022 Active insulin aspart, human 100 unt/ml injectable solution (1 source) Insulin Analog Start: 04-17-2024 Insulin Aspart 100 UNIT/ML solution Indications: Type 1 diabetes mellitus with hyperglycemia (HCC) ([facility]/HCC) USE WITH INSULIN PUMP EXPECT UP TO 150 UNITS DAILY USE 40 mL 11 04/17/2024 Active Insulin Disposable Pump (Omnipod 5 G6 Pod, Gen 5,) misc (1 source) Start: 01-28-2023 Insulin Dispos able Pump (Omnipod 5 G6 Pod, Gen 5,) misc CHANGE POD EVERY 24 HOURS. ICD 10 E11.65 01/28/2023 Active Humalog (4 sources) Insulin Analog Start: 09-29-2013 Humalog SubCut aneous, Refills(s) 0, High blood sugar Start Date: 09/29/13 Status: Ordered insulin lispro (HumaLOG) 100 UNIT/ML injection (1 source) insulin lispro (HumaLOG) 100 UNIT/ML injection Subcutaneous Active insulin pump cart,automated,BT (OMNIPOD 5 G6 PODS, GEN 5, SUBQ) (1 source) insulin pump cart,automated,BT (OMNIPOD 5 G6 PODS, GEN 5, SUBQ) Inject under the skin. 0 Active lansoprazole 30 mg delayed release oral capsule (1 source) Proton Pump Inhibitor Start: 12-21-2022 lansopra zole (Prevacid) [address] capsule 1 capsule. 12/21/2022 Active lisinopril 5 mg oral tablet (2 sources) Angiotensin Converting Enzyme Inhibitor lisinopril 5 MG tabl et 1 (one) time each day at the same time. Active take 1 tablet by lesa th in the morning lisinopriL (PRINIVIL,ZESTRIL) 10 mg tabl et Take 1 tablet (10 mg total) by mouth in the morning. 0 Active meloxicam 15 mg oral tablet (1 source) Nonsteroidal Anti-inflammatory Drug meloxicam (Mobic) 15 MG tablet 1 (one) time each day at the same time. Active montelukast 10 mg oral tablet (2 sources) Leukotriene Receptor Antagonist montelukast (Singulair) 10 MG tablet 1 (one) time each day at the same time. Active naproxen 500 mg oral tablet (4 sources) Nonsteroidal Anti-inflammatory Drug Start: 06-18-20 16 take 1 tablet by mouth twice daily as needed for pain Naprosyn 500 mg Tab 500 mg = 1 tab(s), Oral, BID, PRN for pain, # 20 tab(s), Refills(s) 0 Start Date: 06/18/16 Status: Ordered Non-Formulary Medication (4 sources) Start: 09-30-19 14 Non-Formulary Medication Oral, Daily Start Date: 09/29/13 Status: Ordered omeprazole 40 mg delayed release oral capsule (4 sources) Proton Pump Inhibitor Start: 08-15-19 11 Prilosec 40 mg Cap-EC Oral, BID, Refills(s) 0, Control of stomach acid Start Date: 08/15/10 Status: Ordered pantoprazole 40 mg delayed release oral tablet (2 sources) Proton Pump Inhibitor Start: 02-05-20 23 pantoprazole (ProtoNix) 40 MG EC tablet 02/04/2023 Active sucralfate 1000 mg oral tablet (2 sources) Aluminum Complex sucralfate (Carafate) 1 g tablet every 12 (twelve) hours. Active take 1 tablet by mouth at bedtim e sucralfate (CARAFATE) 1 gram tablet Take 1 tablet (1 g total) by mouth in the morning and 1 tablet (1 g total) at noon and 1 tablet (1 g total) in the evening and 1 tablet (1 g total) before bedtime. 0 Active triamcinolone acetonide 1 mg/ml topical cream (1 source) Corticosteroid triamcinolone (K enalog) 0.1 % cream 1 application. Active vilazodone hydrochloride 40 mg oral tablet (5 sources) Start: 08-09-2014 Viibryd 40 mg oral tablet Refills(s) 0, Depression Start Date: 08/09/14 Status: Ordered Problems Active Problems Problem Classification Problem Date Documented Date Episodic/Chronic Administrative/social admission (4 sources) Family tension 09-11-2013 Episodic Diabetes mellitus without complication (4 sources) Type 2 diabetes mellitus 12-18-2009 Chronic E Codes: Fall (1 source) Fall; Translations: [Unspecified fall, initial encounter] Onset: 06-19-2022 Episodic Essential hypertension (4 sources) Hypertensive disorder 12-17-2013 Chronic Mood disorders (4 sources) Depressive disorder 09-11-2013 Chronic Other connective tissue disease (1 source) Pain in right hand; Translations: [PAIN IN RIGHT HAND] Onset: 07-11-2022 Episodic Other connective tissue disease (1 source) Pain in right finger(s); Translations: [PAIN IN RIGHT FINGERS] Onset: 07-11-2022 Episodic Other nervous system disorders (1 source) Carpal tunnel syndrome of right wrist; Translations: [Carpal tunnel syndrome, right upper limb] Onset: 11-21-2022 11-21-2022 Chronic Other non-traumatic joint disorders (4 sources) Pain in right wrist; Translations: [PAIN IN RIGHT WRIST] Onset: 07-06-2022 Episodic Sprains and strains (1 source) Sprain of wrist; Translations: [Unspecified sprain of unspecified wrist, initial encounter] Onset: 06-19-2022 Episodic Substance-related disorders (4 sources) Smoker 06-18-2016 Chronic Comment on above: Added secondary to d ocumentation in Social History. Superficial injury; contusion (1 source) Contusion of lower leg; Translations: [Contusion of unspecified lower leg, initial encounter] Onset: 06-19-2022 Episodic Past or Other Problems Problem Classification Problem Date Documented Date Episodic/Chronic Asthma (5 sources) Asthma; Translations: [Unspecified asthma, uncomplicated] Onset: 04-24-2023 Resolved: 04-24-2023 09-11-2013 Chronic Diabetes mellitus with complications (1 source) Peripheral neuropathy due to type 2 diabetes mellitus; Translations: [Type 2 diabetes mellitus with diabetic polyneuropathy] Onset: 04-24-2023 Resolved: 04-24-2023 04-24-2023 Chronic Esophageal disorders (5 sources) Gastroesophageal reflux disease; Translations: [Gastro-esophageal reflux disease without esophagitis] Onset: 04-24-2023 Resolved: 04-24-2023 08-15-2010 Chronic Other connective tissue disease (1 source) Radial styloid tenosynovitis; Translations: [Radial styloid tenosynovitis [de Quervain]] Onset: 11-21-2022 11-21-2022 Episodic Unclassified (4 sources) hystrerectomy 01-15-2010 Results Test Name Value Interpretation Reference Range Facility C Urineon 10-02-2023 Bacteria identified Cx Nom (U) Microbiology PROCEDURE: Urine Culture [R1] SOURCE: U CleanCatch BODY SITE: COLLECTED DATE/TIME: 09/30/2023 16:24 EDT RECEIVED DATE/TIME: 09/30/2023 16:54 EDT START DATE/TIME: 09/30/2023 16:54 EDT FREE TEXT SOURCE: Jelani CHEATHAM, Dalton Palomares MD, Dalton FINAL REPORTS Final Report [] Verified Date/Time: 10/02/2023 12:00 EDT <10,000 cfu/ml Mixed skin contaminants Performing Locations R1: This test was performed at: [facility], [address] [place] [address], [facility]- , , [facility] Comment on above: Performed By: #### 2 [id number] #### [facility] [address] [place] [address] Consent for Treatmenton Consent for Treatment [id number] D2#1.00TIFF [facility] Physician Orderon 09-30-2023 Physician Order [id number] 14#1.00TIFF [facility] URINALYSISOrdered By: SYSTEM SYSTEM on 09-30-2023 Color (U) Colorless 1 *ABN* (09/30/23 4:24 PM) Invalid Interpretation Code Yellow [facility] Auto SS Comment on above: Interpretive Data: M icroscopic readings are only performed on those samples that meet specific criteria set forth by [facility]. Glucose (U) [Mass/Vol] 2 mg/dL Invalid Interpretation Code Negativemg/dL [facility] Auto SS Ketones Ql (U) Negative Normal Negativemg/dL [facility] Auto SS UA Bacteria 1+ graded/HPF Invalid Interpretation Code Tracegraded/H PF [facility] Auto SS UA Blood 3+ mg/dL Invalid Interpretation Code Negativemg/dL [facility] UA Auto SS UA Clarity Clear (09/30/23 4:24 PM) Normal Clear [facility] UA Auto SS UA Leuk Est Negative Normal NegativeLeu/u L [facility] UA Auto SS UA Mucous Negative Normal Negativegrade d/LPF [facility] UA Auto SS UA Nitrite Negative Normal Negativemg/dL [facility] UA Aut o SS UA pH 7.0 *NA* (09/30/23 4:24 PM) Invalid Interpretation Code 5.0 - 9.0 [facility] UA Auto SS UA Protein Negative Normal Negativemg/dL [facility] UA Aut o SS UA RBC >75 graded/HPF Invalid Interpretation Code 0-3graded/HPF [facility] UA Auto SS UA Spec Grav 1.009 *NA* (09/30/23 4:24 PM) Invalid Interpretation Code 1.005 - 1.030 [facility] UA Auto SS UA Squam Epithelial 0-2 graded/HPF Normal 0-2graded/HP F [facility] UA Auto SS UA Urobilinogen Negative Normal Negativemg/dL [facility] A Auto SS UA WBC 0-5 graded/HPF Normal 0-5graded/HPF [facility] UA Auto SS Urobilinogen (U) [Mass/Vol] Negative Normal Negativemg/dL [facility] UA Auto SS URINALYSISOrdered By: Jennifer Theodore on 09-30-2023 UA Spec Desc Clean Catch (09/30/23 4:24 PM) Normal [facility] UA Auto SS Urinalysis with Microon 04- Color (U) Colorless Abnormal Yellow [facility] Comment on above: Result Comment: Micr oscopic readings are only performed on those samples that meet specific criteria set forth by [facility]. Performed By: #### 4 [id number] #### [facility] [address] [place] [address] Ketones Ql (U) Negative Normal Negative [facility] Comment on above: Performed By: #### 4 [id number] #### [facility] [address] [place] [address] UA Blood 3+ mg/dL Abnormal Negative [facility] Comment on above: Performed By: #### 4 [id number] #### [facility] [address] [place] [address] UA Bacteria 1+ [id number] Abnormal Trace [facility] Comment on above: Performed By: #### 4 [id number] #### [facility] [address] [place] [address] UA Clarity Clear Normal Clear [facility] Comment on above: Performed By: #### 4 [id number] #### [facility] [address] [place] [address] UA Glucose 2+ mg/dL Abnormal Negative [facility] Comment on above: Performed By: #### 4 [id number] #### [facility] [address] [place] [address] UA Leuk Est Negative Normal Negative [facility] Comment on above: Performed By: #### 4 [id number] #### [facility] [address] [place] [address] UA Mucous Negative Normal Negative [facility] Comment on above: Performed By: #### 4 [id number] #### [facility] [address] [place] [address] UA Nitrite Negative Normal Negative [facility] Comment on above: Performed By: #### 4 [id number] #### [facility] [address] [place] [address] UA pH 7.0 Invalid Interpretation Code 5.0-9.0 [facility] Comment on above: Performed By: #### 4 [id number] #### [facility] [address] [place] [address] UA Protein Negative Normal Negative [facility] Comment on above: Performed By: #### 4 [id number] #### [facility] [address] [place] [address] UA RBC >75 Abnormal 0-3 [facility] Comment on above: Performed By: #### 4 [id number] #### [facility] [address] [place] [address] UA Spec Grav 1.009 Invalid Interpretation Code 1.005-1.030 [facility] Comment on above: Performed By: #### 4 [id number] #### [facility] [address] [place] [address] UA Squam Epithelial 0-2 Normal 0-2 [facility] Comment on above: Performed By: #### 4 [id number] #### [facility] [address] [place] [address] UA Urobilinogen Negative Normal Negative [facility] Comment on above: Performed By: #### 4 [id number] #### [facility] [address] [place] [address] UA WBC 0-5 Normal 0-5 [facility] Comment on above: Performed By: #### 4 [id number] #### [facility] [address] [place] [address] Urobilinogen (U) [Mass/Vol] Negative Normal Negative [facility] Comment on above: Performed By: #### 4 [id number] #### [facility] [address] [place] [address] UA Spec Desc Clean Catch Normal [facility] Comment on above: Performed By: #### 4 [id number] #### [facility] [address] [place] [address] Hemoglobin A1con 09-16-2023 HbA1c (Bld) [Mass fraction] 8.4 % Abnormal 4.0 - 6.0 % [facility] Interpretation and review of laboratory results Abnormal [facility] No Panel Informationon 09-15 [facility] TSHon 09-16-2023 TSH Qn 1.67 m[IU]/L [facility] MRI Ankle w/o Contrast Right on 05-08-2023 [...] MITESH Technologist: KIRBY Technical Comments None Normal [facility] Consent for Treatmenton 11-0 Consent for Treatment [id number] 25#1.00TIFF Normal [facility] RAD - MRI Screening Formon 1 07-07-2022 RAD - MRI Screening Form [id number] 7#1.00TIFF Normal [facility] Physician Orderon 04-30-2023 Physician Order [id number] 2E#1.00TIFF Normal [facility] Auto Diffon 02-21-2023 Basophils/100 WBC (Bld) 0.7 % Normal 0.0-2.0 [facility] Comment on above: Order Comment: Order Added by Discern Expert. Performed By: #### 2 [id number], [id number], [id number], [id number], [id number] #### [facility] [address] [place] [address] Basophils/Leukocytes Auto (Bld) [Pure # fraction] 0.1 E9/L Normal 0.0-0.2 [facility] Comment on above: Order Comment: Order Added by Discern Expert. Performed By: #### 2 [id number], [id number], [id number], [id number], [id number] #### [facility] [address] [place] [address] Eosinophils/100 WBC (Bld) 1.7 % Normal 0.0-8.0 [facility] Comment on above: Order Comment: Order Added by Discern Expert. Performed By: #### 2 868704, [id number], [id number], [id number], [id number] #### [facility] [address] [place] [address] Eosinophils/Leukocyte s Auto (Bld) [Pure # fraction] 0.1 E9/L Normal 0.0-0.5 [facility] Comment on above: Order Comment: Order Added by Discern Expert. Performed By: #### 2 [id number], [id number], [id number], [id number], [id number] #### [facility] [address] [place] [address] Lymphocytes/100 WBC (Bld) 32.9 % Normal 14.0-50.0 [facility] Comment on above: Order Comment: Order Added by Discern Expert. Performed By: #### 2 863459, [id number], [id number], [id number], [id number] #### [facility] [address] [place] [address] Lymphocytes/Leukocyte s Auto (Bld) [Pure # fraction] 2.9 E9/L Normal 1.0-4.0 [facility] Comment on above: Order Comment: Order Added by Discern Expert. Performed By: #### 2 [id number], [id number], [id number], [id number], [id number] #### [facility] [address] [place] [address] Monocytes/100 WBC (Bld) 6.9 % Normal 4.0-14.0 [facility] Comment on above: Order Comment: Order Added by Discern Expert. Performed By: #### 2 370571, [id number], 2521828, [id number], [id number] #### [facility] [address] [place] [address] Monocytes/Leukocytes Auto (Bld) [Pure # fraction] 0.6 E9/L Normal 0.2-1.0 [facility] Comment on above: Order Comment: Order Added by Discern Expert. Performed By: #### 2 963145, [id number], 7111406, [id number], [id number] #### [facility] [address] [place] [address] Neutrophils/100 WBC (Bld) 57.8 % Normal 36.0-75.0 [facility] Comment on above: Order Comment: Order Added by Discern Expert. Performed By: #### 2 [id number], [id number], 2450553, [id number], [id number] #### [facility] [address] [place] [address] Neutrophils/Leukocyte s Auto (Bld) [Pure # fraction] 5.1 E9/L Normal 2.0-7.5 [facility] Comment on above: Order Comment: Order Added by Discern Expert. Performed By: #### 2 134585, [id number], 8595661, 9308866, [id number] #### [facility] [address] [place] [address] BMPon 02-21-2023 Anion gap [Moles/Vol] 12 mmol/L Normal 6-16 [facility] Comment on above: Performed By: #### 2 111919, [id number], 9920955, [id number], [id number] #### [facility] [address] [place] [address] Calcium [Mass/Vol] 9.4 mg/dL Normal 8.9-11.1 [facility] Comment on above: Performed By: #### 2 129496, [id number], 3261192, 8575531, [id number] #### [facility] [address] [place] [address] Chloride [Moles/Vol] 104 mmol/L Normal 101-111 [facility] Comment on above: Performed By: #### 2 827655, [id number], 0409455, 7505776, [id number] #### [facility] [address] [place] [address] CO2 [Moles/Vol] 27 mmol/L Normal 21-31 [facility] Comment on above: Performed By: #### 2 098709, [id number], 1286613, 3415700, [id number] #### [facility] [address] [place] [address] Glucose [Mass/Vol] 188 mg/dL Normal 55-199 [facility] Comment on above: Result Comment: If t his glucose result represents a fasting glucose, interpretation should refer to the following reference range: 55-99 mg/dL Performed By: #### 2 176934, [id number], 4564998, 9236234, [id number] #### [facility] [address] [place] [address] Potassium [Moles/Vol] 3.7 mmol/L Normal 3.5-5.3 [facility] Comment on above: Performed By: #### 2 977265, [id number], 7815106, 7408493, [id number] #### [facility] [address] [place] [address] Sodium [Moles/Vol] 139 mmol/L Normal 135-145 [facility] Comment on above: Performed By: #### 2 [id number], [id number], [id number], [id number], [id number] #### [facility] [address] [place] [address] Creatinine [Mass/Vol] 0.7 mg/dL Normal 0.5-1.3 [facility] Comment on above: Performed By: #### 2 480713, [id number], 7403350, 2257332, [id number] #### [facility] [address] [place] [address] Urea nitrogen [Mass/Vol] 17 mg/dL Normal 5-21 [facility] Comment on above: Performed By: #### 2 996360, [id number], 1459283, 5620841, [id number] #### [facility] [address] [place] [address] Urea nitrogen/Creatinine [Mass ratio] 24 No Units High 10-20 [facility] Comment on above: Performed By: #### 2 193659, [id number], 3376144, 7856484, [id number] #### [facility] [address] [place] [address] CBC w/ Auto Diffon 3 Erythrocyte distribution width (RBC) [Ratio] 12.3 % Normal 10.9-14.2 [facility] Comment on above: Performed By: #### 2 163358, [id number], 8331793, 9811857, [id number] #### [facility] [address] [place] [address] Hematocrit (Bld) [Volume fraction] 42.6 % Normal 34.0-46.0 [facility] Comment on above: Performed By: #### 2 519450, [id number], 0639559, 5485257, [id number] #### [facility] [address] [place] [address] Hemoglobin (Bld) [Mass/Vol] 14.8 g/dL Normal 12.0-16.0 [facility] Comment on above: Performed By: #### 2 805319, [id number], 3840245, 6946788, [id number] #### [facility] [address] [place] [address] MCH (RBC) [Entitic mass] 31.3 pg Normal 27.0-34.0 [facility] Comment on above: Performed By: #### 2 240504, 69769684, 1068333, 3133384, [id number] #### [facility] [address] [place] [address] MCHC (RBC) [Mass/Vol] 34.6 g/dL Normal 31.4-36.0 [facility] Comment on above: Performed By: #### 2 865411, 06120996, 0544610, 3476293, [id number] #### [facility] [address] [place] [address] MCV (RBC) [Entitic vol] 90.4 fL Normal 80.0-100.0 [facility] Comment on above: Performed By: #### 2 022339, 95794625, 8790737, 5350137, [id number] #### [facility] [address] [place] [address] Platelet mean volume (Bld) [Entitic vol] 8.7 fL Normal 6.4-10.8 [facility] Comment on above: Performed By: #### 2 584024, 13898048, 2278073, 9876794, [id number] #### [facility] [address] [place] [address] Platelets (Bld) [#/Vol] 219.0 E9/L Normal 150.0-500.0 [facility] Comment on above: Performed By: #### 2 684155, 25307177, 0341147, 6758805, [id number] #### [facility] [address] [place] [address] RBC (Bld) [#/Vol] 4.7 E12/L Normal 4.3-5.9 [facility] Comment on above: Performed By: #### 2 077986, 96588976, 7728017, 9758855, [id number] #### [facility] [address] [place] [address] WBC corrected for nucl RBC Auto (Bld) [#/Vol] 8.8 E9/L Normal 4.0-11.0 [facility] Comment on above: Performed By: #### 2 913495, 30779104, 2075808, 8731742, [id number] #### [facility] [address] [id number] CHEMISTRYOrdered By: SYSTEM SYSTEM on 02-21-2023 Anion gap [Moles/Vol] 12 mmol/L Normal 6 - 16 mEq/L F [facility] Calcium [Mass/Vol] 9.4 mg/dL Normal 8.9 - 11. 1 mg/dL [facility] Chloride [Moles/Vol] 104 mmol/L Normal 101 - 1 11 mmol/L [facility] CO2 [Moles/Vol] 27 mmol/L Normal 21 - 31 mmol/L [facility] Creatinine [Mass/Vol] 0.7 mg/dL Normal 0.5 - 1.3 mg/dL [facility] GFR/1.73 sq M.predicted among non-blacks MDRD (S/P/Bld) [Vol rate/Area] 103 mL/min/1.73 m2 Normal >=59mL/min/1. 73 m2 FT Chem S Glucose [Mass/Vol] 188 mg/dL Normal 55 - 199 mg/dL [facility] Potassium [Moles/Vol] 3.7 mmol/L Normal 3.5 - 5.3 mmol/L [facility] Sodium [Moles/Vol] 139 mmol/L Normal 135 - 145 mmol/L [facility] Urea nitrogen [Mass/Vol] 17 mg/dL Normal 5 - 21 mg/dL [facility] Urea nitrogen/Creatinine [Mass ratio] 24 mg/mg High 10 - 20 [facility] CHEMISTRYOrdered By: Francine Martins on 02-21-2023 HbA1c (Bld) [Mass fraction] 8.6 % High <=5.9% [facility] ChemAutoSS Consent for Treatmenton 01-30 Consent for Treatment [id number] 35#1.00CD:127 Normal [facility] HEMATOLOGYOrdered By: SYSTEM SYSTEM on 02-21-2023 Basophils/100 WBC (Bld) 0.7 % Normal 0.0 - 2.0 % [facility] HemeAutoSS Basophils/Leukocytes Auto (Bld) [Pure # fraction] 0.1 E9/L Normal 0.0 - 0.2 E9/L [facility] HemeAutoSS Eosinophils/100 WBC (Bld) 1.7 % Normal 0.0 - 8.0 % [facility] HemeAutoSS Eosinophils/Leukocyte s Auto (Bld) [Pure # fraction] 0.1 E9/L Normal 0.0 - 0.5 E9/L [facility] HemeAutoSS Lymphocytes/100 WBC (Bld) 32.9 % Normal 14.0 - 50.0 % [facility] HemeAutoSS Lymphocytes/Leukocyte s Auto (Bld) [Pure # fraction] 2.9 E9/L Normal 1.0 - 4.0 E9/L [facility] HemeAutoSS Monocytes/100 WBC (Bld) 6.9 % Normal 4.0 - 14.0 % [facility] HemeAutoSS Monocytes/Leukocytes Auto (Bld) [Pure # fraction] 0.6 E9/L Normal 0.2 - 1.0 E9/L [facility] HemeAutoSS Neutrophils/100 WBC (Bld) 57.8 % Normal 36.0 - 75.0 % [facility] HemeAutoSS Neutrophils/Leukocyte s Auto (Bld) [Pure # fraction] 5.1 E9/L Normal 2.0 - 7.5 E9/L [facility] HemeAutoSS HEMATOLOGYOrdered By: Amy Ruvalcaba on 02-21-2023 [...] 4.7 E12/L Normal 4.3 - 5.9 E12/L [facility] HemeAutoSS WBC corrected for nucl RBC Auto (Bld) [#/Vol] 8.8 E9/L Normal 4.0 - 11.0 E9/L [facility] HemeAutoSS [id number] 02-21-2023 HbA1c (Bld) [Mass fraction] 8.6 % High <=5.9 [facility] Comment on above: Performed By: #### 2 645056, [id number], 9106084, 8205246, [id number] #### [facility] [address] [place] [address] Physician Orderon 02-21-2023 Physician Order [id number] 5#1.00CD:127 Normal [facility] eGFRon 02-21-2023 GFR/1.73 sq M.predicted among non-blacks MDRD (S/P/Bld) [Vol rate/Area] 103 mL/min/1.73 m2 Normal >=59 [facility] Comment on above: Order Comment: Order added by Discern Expert. Result Comment: Lime Slaker clark kidney disease could be indicated at eGFR's of less than 60 mL/min/1.73m2. Kidney failure is indicated at less than 15 mL/min/1.73m2. Performed By: #### 2 526391, [id number], 4205476, 7483085, [id number] #### [facility] [address] [place] [address] CT WRIST RT WO CONon 023 CT WRIST RT WO CON EXAMINATION: CT WRIST RT WO CON HISTORY: Wrist pain following fall down steps COMPARISON: X-rays 07/06/2022 TECHNIQUE: Axial CT imaging is performed through the wrist. Sagittal and coronal reformatted/reconst ructed sequences were presented in osseous windows only. [...] by: TG CASTANEDA Date: 2022-07-12 15:18 Normal [facility] Vital Signs Date Time Vital Sign Value Performing Clinician Facility 09-12-2023 15:16-0400 Body height 152.4 cm Shahnaz Mcdermott MD Work Phone: [facility] 09-12-2023 15:16-0400 Body mass index (BMI) [Ratio] 31.09 kg/m2 Shahnaz Mcdermott MD Work Phone: [facility] 09-12-2023 15:16-0400 Body weight 72.21 kg Shahnaz Mcdermott MD Work Phone: [facility] 09-12-2023 15:16-0400 Diastolic blood pressure 72 mm[Hg] Shahnaz Mcdermott MD Work Phone: [facility] 09-12-2023 15:16-0400 Systolic blood pressure 132 mm[Hg] Shahnaz Mcdermott MD Work Phone: [facility] 06-19-2022 18:16-0500 Diastolic blood pressure 87 mm[Hg] [facility] 06-19-2022 18:16-0500 Heart rate 91 /min [facility] 06-19-2022 18:16-0500 Mean blood pressure 106 mm[Hg] [facility] 06-19-2022 18:16-0500 Respiratory rate 17 /min [facility] 06-19-2022 18:16-0500 SaO2% (BldA) [Mass fraction] 95 % [facility] 06-19-2022 18:16-0500 Systolic blood pressure 144 mm[Hg] [facility] 06-19-2022 17:16-0500 Diastolic blood pressure 81 mm[Hg] [facility] 06-19-2022 17:16-0500 Heart rate 88 /min [facility] 06-19-2022 17:16-0500 Respiratory rate 16 /min [facility] 06-19-2022 17:16-0500 SaO2% (BldA) [Mass fraction] 96 % [facility] 06-19-2022 17:16-0500 Systolic blood pressure 149 mm[Hg] [facility] 06-19-2022 16:16-0500 Diastolic blood pressure 79 mm[Hg] [facility] 06-19-2022 16:16-0500 Heart rate 91 /min [facility] 06-19-2022 16:16-0500 Respiratory rate 17 /min [facility] 06-19-2022 16:16-0500 SaO2% (BldA) [Mass fraction] 96 % [facility] 06-19-2022 16:16-0500 Systolic blood pressure 151 mm[Hg] [facility] 06-19-2022 16:09-0500 Body temperature 98.42 [degF] [facility] Encounters Encounter Date Encounter Type Care Provider Facility Start: 04-21-2024 End: 04-21-2024 Telephone encounter Edgard Garcia MD Work Phone: [facility] Start: 09-30-2023 End: 10-01-2023 ambulatory Dalton Palomares Facility:[facility] Start: 09-30-2023 End: 09-30-2023 Patient encounter procedure Dalton Hoy [facility] Start: 09-27-2023 Chart abstracting Shahnaz little MD Work Phone: [facility] Start: 05-13-2023 End: 05-13-2023 ambulatory YOGI PETIT Not Available Start: 05-07-2023 End: 05-08-2023 ambulatory Yogi Petit Facility:[facility] Start: 02-21-2023 End: 02-22-2023 ambulatory Tg Clark Facility:[id number] Start: 02-21-2023 End: 02-21-2023 Patient encounter procedure Tg Olivera Otfmarla [facility] Start: 07-16-2022 End: 07-17-[address] DALTON PALOMARES Facility:[facility] Start: 07-12-2022 End: 07-13-[address] DALTON PALOMARES Facility:[facility] Start: 07-06-2022 End: 07-07-[address] DALTON PALOMARES Facility:[facility] Start: 06-19-2022 End: 06-19-2022 Emergency department patient visit Melba Perry [facility] Start: 05-18-2022 End: 06-15-2022 Pre-admission assessment Dalton Palomares [facility] Procedures Date Procedure Procedure Detail Performing Clinician Start: 09-16-2023 Hemoglobin glycosyla errol a1c Dalton Palomares MD Work Phone: H/O: tubal ligation tubal Dalton Esauy Hysterectomy Dalton Palomares Other bilateral liga tion and division of fallopian tubes Dalton Palomares Plan of Treatment Date Care Activity Detail Author Start: 09-11-2024 Adult BMI Screening Adult BMI Screening [facility] Start: 05-20-2024 End: 05-20-2024 Patient encounter procedure 05/20/2024 1:40 PM EST Office Visit [facility] [address] [place] [address] Edagrd Garcia MD [address] [place] [address] [facility] Start: 10-07-2023 End: 10-07-2023 Patient encounter procedure 10/07/2023 10:00 AM EDT [facility] [address] [place] [id number] Shahnaz Mcdermott MD [address] [place] [address] [facility] Start: 03-01-2023 Influenza vaccination Influenza Vaccine [facility] Start: 2018 Administration of varicella zoster vaccine Zoster (Shingles) Vaccine (1 of 2) [facility] Start: 1989 Screening for malignant neoplasm of cervix Pap Smear [facility] Start: 1987 DTaP,Tdap and Td Vaccines (1 - Tdap) DTaP,Tdap and Td Vaccines (1 - Tdap) [facility] Start: 1986 Adult BMI Follow Up Plan Adult BMI Follow Up Plan [facility] Start: 1986 Diabetic foot examination Diabetic Foot Exam [facility] Start: 1980 [facility] Start: 1980 [facility] Start: 1968 Glaucoma screening Diabetic Ophthalmology Exam [facility] Start: 1968 Tobacco Counseling Tobacco Counseling [facility] tem Payers Date Payer Category Payer Medicaid [facility] O [id number] 2023-Present [phone] [address] [place] [address] [id number] 2022 Medicaid [id number] 2016 Private Health Insurance [facility] [id number] 1968 Unknown [id number] 1968 Unknown [id number] 593 1968 Unknown [id number] 593 1968 Unknown [id number] 356 1968 Unknown [id number] 1259 1968 Unknown [id number] [id number] 727 1968 Unknown [id number] 727 1968 Unknown [id number] 727 1959 Unknown [id number] Social History Date Type Detail Facility Start: 03-26-2018 End: 06-19-2022 Tobacco smoking status Heavy tobacco smoker (finding) [facility] Start: 05-13-2023 End: 09-27-2023 Sex Assigned At Female [facility] Start: 09-27-2023 Tobacco smoking status HIIS Smokes tobacco daily [facility] History of tobacco use [facility] Start: 02-06-2023 End: 09-27-2023 Tobacco use and exposure Smokeless tobacco non-user [facility] Start: 05-13-2023 End: 09-27-2023 History of Social function [facility] Start: 1970 Sex Assigned At Not on file [facility] Start: 02-06-2023 Tobacco smoking status NHIS Occasional tobacco smoker [facility] Start: 05-13-2023 Alcoholic beverage intake Lifetime non-drinker (finding) [facility] Start: 03-08-2023 Alcohol Comment caffeine 1-2 c ups per day; soda/coffee [facility] Start: 1970 Sex assigned at Female [facility] Start: 11-20-2022 Gender identity Identifies as female gender (finding) [facility] NEGATED: Highlighted rowStart: NINF History of tobacco use Passive smoker [facility] Medical Equipment Procedure Code Equipment Code Equipment Origin al Text Equipment Identifier Dates TEST 6 TIMES A DAY Start: 09-29-2022 Functional Status Date Assessment Result Facility 06-19-2022 Functional Status N/A [facility] Clinical Notes 06-19-2022 to 04-21-2024 Telephone Encounter - Ann Panchal LPN - 04/21/2024 2:27 PM EDTTelephone Encounter - Ann Panchal LPN - 04/21/2024 2:27 PM EDT Note Date & Type Note Facility 04-21-2024 Telephone encount er Note I SPOKE WITH THE PT AND ADVISED HER SHE DOES NEED DIABETIC EDUCATION THANKS. [facility] 04-21-2024 Miscellaneous Notes Formattin g of this note might be different from the original. I SPOKE WITH THE PT AND ADVISED HER SHE DOES NEED DIABETIC EDUCATION THANKS. PA needed for omnipods INDER, please expedite. She's on her last pod. documented in this encounter [facility] 04-21-2024 Telephone encount er Note PA needed for omnipods INDER, please expedite. She's on her last pod. [facility] 09-30-2023 Evaluation + Plan note Diagnostic Tests PendingUrine Culture 09/30/23 [facility] 07-17-2022 Note PROCEDURE: XR FOOT R T MIN 3 VIEWS COMPARISON: None. HISTORY: Pain in right foot FINDINGS: BONES:No fracture, acute abnormality, or significant arthropathy. SOFT TISSUES:Negative. No visible soft tissue swelling. EFFUSION:None visible. OTHER: Negative. IMPRESSION: No acute abnormality Electronically authenticated by: TG FIERRO Date: 2022-07-17 08:50 [facility] 07-06-2022 Note PROCEDURE: XR HAND R T [...] authenticated by: JOHN LONDONO Date: 2022-07-06 14:25 [facility] 07-06-2022 Note PROCEDURE: XR HAND R T [...] authenticated by: JOHN LONDONO Date: 2022-07-06 14:25 [facility] 06-19-2022 Hospital Discharg e instructions Patient Education [...] your health care provider. General instructions Take [id number] and prescription medicines only as told by [...] 02/18/2015 Document Revised: 05/30/2018 Document Reviewed: 01/03/2017 [employer] Patient Education 2020 [employer] Follow Up Care 06/19/2022 16:04:22 With:Dalton Palomares Address: [address] [place] [phone] (1) When:06/22/2022 18:22:44 [facility] 06-19-2022 Evaluation + Plan note Extrac errol [...] 2 View XR Wrist 3+ Views Right [facility] No data available for this section [facility] No data available for this section [facility]ructionsNot on filedocumented in this encounter [facility] No data available for this section [facility] Summary Purpose Family History No Family History Records FoundNo Family History Records FoundNo Family History Records Found No data available for this section No Family History Records Found Advance Directives No Advanced Directives Records FoundNo Advanced Directives Records FoundNo Advanced Directives Records FoundNo Advanced Directives Records Found Additional Source Comments Patient Care team informatio n (unrecognized section and content) [place] Roofer Helper Relationship Specialty Start Date End Date Dalton Palomares MD [address] [place] [address] PCP - General Family Medicine 09/19/23 [place]ta Roofer Helper Relationship Specialty Start Date End Date Dalton Palomares MD [address] [place] [address] PCP - General Family Medicine 11/20/22 INFORMATION SOURCE (unrecogn ized section and content) DATE CREATED AUTHOR 07/17/2022 [facility] DATE CREATED AUTHOR AUTHOR'S ORGANIZ ATION 05/01/2023 [facility] DATE CREATED AUTHOR AUTHOR'S ORGANIZ ATION 05/14/2023 [facility] DATE CREATED AUTHOR AUTHOR'S ORGANIZ ATION 10/03/2023 [facility] FOR RECORDS PERTAINING TO PATIENTS WHO ARE [...] BE BASED ON THE PRIMARY CLINICAL RECORDS. [employer] provides no warranty or guarantee of the accuracy or completeness of information in this document.
[2024-05-07 09:47] LABS: Estimated Average Glucose 200 mg/dL; Glycohemoglobin A1C 8.6 % (4.5-6.2)
[2024-05-07 10:08] LABS: Basophils Absolute Auto 0.1 10^3/uL (0.0-0.1); Basophils Percent Auto 0.8 % (0.2-2.0); Eosinophils Absolute Auto 0.2 10^3/uL (0.0-0.7); Hematocrit 43.4 % (36.0-48.0); Hemoglobin 14.5 g/dL (12.0-16.0); Immature Granulocytes Abs Auto 0.01 10^3/uL (0.00-0.03); Immature Granulocytes Pct Auto 0.1 % (0.0-0.5); Lymphocytes Absolute Auto 2.5 10^3/uL (1.2-3.8); Lymphocytes Percent Auto 32.1 % (20.5-60.0); Mean Corpuscular HGB Conc 33.4 g/dL (29.9-35.2); Mean Corpuscular Hemoglobin 30.4 pg (26.7-34.0); Mean Platelet Volume 10.2 fL (9.5-13.5); Monocytes Absolute Auto 0.6 10^3/uL (0.3-0.8); Monocytes Percent Auto 7.4 % (1.7-12.0); Neutrophils Absolute Auto 4.6 10^3/uL (1.4-6.5); Neutrophils Percent Auto 57.6 % (43.0-75.0); Platelet Count 235 10^3/uL (150-450); Red Blood Count 4.77 10^6/uL (4.20-5.40); Red Cell Distribution Width 11.9 % (11.0-15.0); White Blood Count 7.9 10^3/uL (4.0-11.0)
[2024-05-07 10:32] LABS: Alanine Aminotransferase 20 U/L (14-59); Albumin Globulin Ratio 1.1; Albumin Level 3.6 g/dL (3.4-5.0); Alkaline Phosphatase 63 U/L (46-116); Anion Gap 14.1; Aspartate Amino Transferase 13 U/L (15-37); BUN Creatinine Ratio 12.5; Bilirubin Total 1.1 mg/dL (0.2-1.0); Calcium 9.4 mg/dL (8.5-10.1); Carbon Dioxide 27.8 mmol/L (21.0-32.0); Chloride 106 mmol/L (98-107); Chol HDL Ratio 3.2; Cholesterol 153 mg/dL (<=200); Estimated GFR (African America >60 (>=60 mL/min/1.73m^2); Estimated GFR (Non-African Ame >60 (>=60 mL/min/1.73m^2); Free T3 2.12 pg/mL (2.18-3.98); Globulin 3.3 g/dL; Glucose 209 mg/dL (74-106); HDL Cholesterol 48 mg/dL (40-60); LDL Cholesterol Calculated 78.4 mg/dL; Potassium 3.9 mmol/L (3.5-5.1); Sodium 144 mmol/L (136-145); Total Protein 6.9 g/dL (6.4-8.2); Triglycerides 133 mg/dL (<=150); VLDL CHOLESTEROL 26.6 mg/dL
[2024-05-08 08:13] LABS: Insulin 3.2 uIU/mL (2.6-24.9)
== END 2024-05-07 09:07 | disposition home or self-care (01) ==
LOC: LAB 09:08
PROVIDERS: PCP Family Medicine; Visit Provider Family Medicine
DX: R00.2 Palpitations (principal); I10 Essential (primary) hypertension; G47.00 Insomnia, unspecified; F32.9 Major depressive disorder, single episode, unspecified
CPT/HCPCS: 36415; 80053; 80061; 82306; 83036; 83525; 83540; 84436; 84443; 84481; 85025

== ENCOUNTER 2024-05-18 17:31 | Outpatient (REF) | payer OTHER, SELFPAY ==
--- OUTSIDE RECORDS SUMMARY | 2024-05-18 17:40 | XMS_ITS | CCD ---
Author Organization [facility] Care Team Providers Care Marketing Manager Name Role Phone Dalton Palomares Primary Care Physician [phone] JELANI, DR HOFFMAN Admitting Unavailable ESAUY, DR [...] Unavailable Dalton Palomares MD Primary Care Provider [phone] Tg Clark Admitting Unavailable PocosTg Attending Unavailable PocTg gutiérrez Referring Unavailable Yogi Petit Admitting Unavailable DolYogi mendoza Attending Unavailable Yogi Petit Referring Unavailable Dalton Palomares Admitting Unavailable Dalton Palomares Attending Unavailable Dalton Palomares MD Primary Care Provider [phone] Allergies Allergy Classification Reported Allergen(s) Allergy Type Date of Onset Reaction(s) Facility (6 sources) Codeine; Translations: [codeine] Drug Allergy 5 Anaphylaxis [facility] (7 sources) Penicillins; Translations: [penicillins] Drug allergy 5 Anaphylaxis [facility] (1 source) Codeine Drug Allergy 4 Anaphylaxis [...] tablet (4 sources) Opioid Agonist Start: 03-26-2018 [place] 325 mg-5 mg oral tablet 1 tab(s), [...] / neomycin 3.5 mg/ml / polymyxin b 43569 unt/ml ophthalmic suspension (1 source) Aminoglycoside Antibacterial, Polymyxin-class Antibacterial, Corticosteroid dtyczaqj-kzdhljqgy-i exAMETHasone (Maxitrol) 0.1 % ophthalmic suspension every 6 (six) hours. Active Erythromycin (4 sources) Macrolide, Macrolide Antimicrobial Start: 03-26-2018 erythromycin ophthalmic 0.5% ointment 0.5 in, Eye-Right, QID, 3.5 gram, Refill(s) 0, [facility]/pharmacy #[id number] Start Date: 03/26/18 Status: Ordered fluticasone [...] Type 1 diabetes mellitus with hyperglycemia (HCC) ([facility]/HCC) USE WITH INSULIN PUMP EXPECT UP TO [...] Locations R1: This test was performed at: [facility], [address] [place] [address], [facility]- , , [facility] Comment on above: Performed By: #### 2 [id number] #### [facility] [address] [place] [address] Consent for Treatmenton Consent for Treatment [id number] D2#1.00TIFF [facility] Physician Orderon 09-30-2023 Physician Order [id number] 14#1.00TIFF [facility] URINALYSISOrdered By: SYSTEM SYSTEM on 09-30-2023 Color (U) Colorless 1 *ABN* (09/30/23 4:24 PM) Invalid Interpretation Code Yellow [facility] UA Auto SS Comment on above: Interpretive Data: M icroscopic readings are only performed on those samples that meet specific criteria set forth by [facility]. Glucose (U) [Mass/Vol] 2 mg/dL Invalid Interpretation Code Negativemg/dL [facility] UA Auto SS Ketones Ql (U) Negative Normal Negativemg/dL [facility] UA Auto SS UA Bacteria 1+ graded/HPF Invalid Interpretation Code Tracegraded/H PF [facility] UA Auto SS UA Blood 3+ mg/dL Invalid Interpretation Code Negativemg/dL [facility] UA Auto SS UA Clarity Clear (09/30/23 [...] Microon 04- Color (U) Colorless Abnormal Yellow [facility] Comment on above: Result Comment: Micr oscopic readings are only performed on those samples that meet specific criteria set forth by [facility]. Performed By: #### 4 [id number] #### [facility] [address] [place] [address] Ketones Ql (U) Negative Normal Negative [facility] Comment on above: Performed By: #### 4 [id number] #### [facility] [address] [place] [address] UA Blood 3+ mg/dL Abnormal Negative [facility] Comment on above: Performed By: #### 4 [id number] #### [facility] [address] [place] [address] UA Bacteria 1+ CD:[id number] Abnormal Trace [facility] Comment on above: Performed By: #### 4 [id number] #### [facility] [address] [place] [address] UA Clarity Clear Normal Clear [facility] Comment on above: Performed By: #### 4 [id number] #### [facility] [address] [place] [address] UA Glucose 2+ mg/dL Abnormal Negative [facility] Comment on above: Performed By: #### 4 [id number] #### [facility] [address] [place] [address] UA Leuk Est Negative Normal Negative [facility] Comment on above: Performed By: #### 4 [id number] #### [facility] [address] [place] [address] UA Mucous Negative Normal Negative [facility] Comment on above: Performed By: #### 4 [id number] #### [facility] [address] [place] [address] UA Nitrite Negative Normal Negative [facility] Comment on above: Performed By: #### 4 [id number] #### [facility] [address] [place] [address] UA pH 7.0 Invalid Interpretation Code 5.0-9.0 [facility] Comment on above: Performed By: #### 4 [id number] #### [facility] [address] [place] [address] UA Protein Negative Normal Negative [facility] Comment on above: Performed By: #### 4 [id number] #### [facility] [address] [place] [address] UA RBC >75 Abnormal 0-3 [facility] Comment on above: Performed By: #### 4 [id number] #### [facility] [address] [place] [address] UA Spec Grav 1.009 Invalid Interpretation Code 1.005-1.030 [facility] Comment on above: Performed By: #### 4 [id number] #### [facility] [address] [place] [address] UA Squam Epithelial 0-2 Normal 0-2 [facility] Comment on above: Performed By: #### 4 [id number] #### [facility] [address] [place] [address] UA Urobilinogen Negative Normal Negative [facility] Comment on above: Performed By: #### 4 [id number] #### [facility] [address] [place] [address] UA WBC 0-5 Normal 0-5 [facility] Comment on above: Performed By: #### 4 [id number] #### [facility] [address] [place] [address] Urobilinogen (U) [Mass/Vol] Negative Normal Negative [facility] Comment on above: Performed By: #### 4 [id number] #### [facility] [address] [place] [address] UA Spec Desc Clean Catch Normal [facility] Comment on above: Performed By: #### 4 [id number] #### [facility] [address] [place] [address] Hemoglobin A1con 09-16-2023 HbA1c (Bld) [Mass fraction] 8.4 % Abnormal 4.0 - 6.0 % [facility] Interpretation and review of laboratory results Abnormal [facility] No Panel Informationon 09-15 [facility] TSHon 09-16-2023 TSH Qn 1.67 m[IU]/L [facility] MRI Ankle w/o Contrast Right on 05-08-2023 [...] MITESH Technologist: KIRBY Technical Comments None Normal [facility] Consent for Treatmenton 11-0 Consent for Treatment [id number] 25#1.00TIFF Normal [facility] RAD - MRI Screening Formon 1 07-07-2022 RAD - MRI Screening Form [id number] 7#1.00TIFF Normal [facility] Physician Orderon 04-30-2023 Physician Order [id number] 2E#1.00TIFF Normal [facility] Auto Diffon 02-21-2023 Basophils/100 WBC (Bld) 0.7 % Normal 0.0-2.0 [facility] Comment on above: Order Comment: Order Added by Discern Expert. Performed By: #### 2 105250, [id number], 2727943, 5429113, [id number] #### [facility] [address] [place] [address] Basophils/Leukocytes Auto (Bld) [Pure # fraction] 0.1 E9/L Normal 0.0-0.2 [facility] Comment on above: Order Comment: Order Added by Discern Expert. Performed By: #### 2 470314, 05687353, 8919698, 1741700, [id number] #### [facility] [address] [place] [address] Eosinophils/100 WBC (Bld) 1.7 % Normal 0.0-8.0 [facility] Comment on above: Order Comment: Order Added by Discern Expert. Performed By: #### 2 197934, [id number], 9261078, 5168500, [id number] #### [facility] [address] [place] [address] Eosinophils/Leukocyte s Auto (Bld) [Pure # fraction] 0.1 E9/L Normal 0.0-0.5 [facility] Comment on above: Order Comment: Order Added by Discern Expert. Performed By: #### 2 497621, 98631697, 6736381, 1549263, 578587671 #### [facility] [address] [place] [address] Lymphocytes/100 WBC (Bld) 32.9 % Normal 14.0-50.0 [facility] Comment on above: Order Comment: Order Added by Discern Expert. Performed By: #### 2 411090, 74329594, 7815468, 6145797, 208510927 #### [facility] [address] [place] [address] Lymphocytes/Leukocyte s Auto (Bld) [Pure # fraction] 2.9 E9/L Normal 1.0-4.0 [facility] Comment on above: Order Comment: Order Added by Discern Expert. Performed By: #### 2 698608, 14329822, 8730582, 8655555, [id number] #### [facility] [address] [place] [address] Monocytes/100 WBC (Bld) 6.9 % Normal 4.0-14.0 [facility] Comment on above: Order Comment: Order Added by Discern Expert. Performed By: #### 2 939027, 72989655, 0973433, 1600401, [id number] #### [facility] [address] [place] [address] Monocytes/Leukocytes Auto (Bld) [Pure # fraction] 0.6 E9/L Normal 0.2-1.0 [facility] Comment on above: Order Comment: Order Added by Discern Expert. Performed By: #### 2 642628, 28652832, 9700073, 6946315, [id number] #### [facility] [address] [place] [address] Neutrophils/100 WBC (Bld) 57.8 % Normal 36.0-75.0 [facility] Comment on above: Order Comment: Order Added by Discern Expert. Performed By: #### 2 490559, 99555441, 6091904, 7935883, 646681938 #### [facility] [address] [place] [address] Neutrophils/Leukocyte s Auto (Bld) [Pure # fraction] 5.1 E9/L Normal 2.0-7.5 [facility] Comment on above: Order Comment: Order Added by Discern Expert. Performed By: #### 2 402303, 33237013, 5947227, 3172734, 287486295 #### [facility] [address] [place] [address] BMPon 02-21-2023 Anion gap [Moles/Vol] 12 mmol/L Normal 6-16 [facility] Comment on above: Performed By: #### 2 065222, 25345974, 5630363, 7765502, 911266845 #### [facility] [address] [place] [address] Calcium [Mass/Vol] 9.4 mg/dL Normal 8.9-11.1 [facility] Comment on above: Performed By: #### 2 163377, 33954514, 5684491, 9995562, 730967863 #### [facility] [address] [place] [address] Chloride [Moles/Vol] 104 mmol/L Normal 101-111 [facility] Comment on above: Performed By: #### 2 763103, 68906669, 3177659, 6113498, 550075698 #### [facility] [address] [place] [address] CO2 [Moles/Vol] 27 mmol/L Normal 21-31 [facility] Comment on above: Performed By: #### 2 618793, 69355391, 3546849, 2105422, 179844785 #### [facility] [address] [place] [address] Glucose [Mass/Vol] 188 mg/dL Normal 55-199 [facility] Comment on above: Result Comment: If t his glucose result represents a fasting glucose, interpretation should refer to the following reference range: 55-99 mg/dL Performed By: #### 2 534614, 92776253, 1477372, 9918625, 180739777 #### [facility] [address] [place] [address] Potassium [Moles/Vol] 3.7 mmol/L Normal 3.5-5.3 [facility] Comment on above: Performed By: #### 2 567417, 87953937, 5680872, 8194811, 946111039 #### [facility] [address] [place] [address] Sodium [Moles/Vol] 139 mmol/L Normal 135-145 [facility] Comment on above: Performed By: #### 2 475146, 35239734, 3800334, 3801677, 145574933 #### [facility] [address] [place] [address] Creatinine [Mass/Vol] 0.7 mg/dL Normal 0.5-1.3 [facility] Comment on above: Performed By: #### 2 181459, 98355356, 5146187, 6347979, 316581822 #### [facility] [address] [place] [address] Urea nitrogen [Mass/Vol] 17 mg/dL Normal 5-21 [facility] Comment on above: Performed By: #### 2 382648, 27917197, 7588056, 3276349, 287532913 #### [facility] [address] [place] [address] Urea nitrogen/Creatinine [Mass ratio] 24 No Units High 10-20 [facility] Comment on above: Performed By: #### 2 190714, 69754206, 0702009, 3991237, 288315644 #### [facility] [address] [place] [address] CBC w/ Auto Diffon 3 Erythrocyte distribution width (RBC) [Ratio] 12.3 % Normal 10.9-14.2 [facility] Comment on above: Performed By: #### 2 437082, 44553283, 5700626, 5221319, 838377379 #### [facility] [address] [place] [address] Hematocrit (Bld) [Volume fraction] 42.6 % Normal 34.0-46.0 [facility] Comment on above: Performed By: #### 2 474576, 14027802, 4388509, 5672890, 149751537 #### [facility] [address] [place] [address] Hemoglobin (Bld) [Mass/Vol] 14.8 g/dL Normal 12.0-16.0 [facility] Comment on above: Performed By: #### 2 046456, 35345296, 0705964, 3799892, 037126208 #### [facility] [address] [place] [address] MCH (RBC) [Entitic mass] 31.3 pg Normal 27.0-34.0 [facility] Comment on above: Performed By: #### 2 901832, 12997254, 1046881, 1531808, 581604998 #### [facility] [address] [place] [address] MCHC (RBC) [Mass/Vol] 34.6 g/dL Normal 31.4-36.0 [facility] Comment on above: Performed By: #### 2 800055, 71201848, 5909172, 1861886, 605968082 #### [facility] [address] [place] [address] MCV (RBC) [Entitic vol] 90.4 fL Normal 80.0-100.0 [facility] Comment on above: Performed By: #### 2 870155, 82267706, 0302133, 6097824, 844691836 #### [facility] [address] [place] [address] Platelet mean volume (Bld) [Entitic vol] 8.7 fL Normal 6.4-10.8 [facility] Comment on above: Performed By: #### 2 788642, 63704217, 0534768, 1437416, 193162929 #### [facility] [address] [place] [address] Platelets (Bld) [#/Vol] 219.0 E9/L Normal 150.0-500.0 [facility] Comment on above: Performed By: #### 2 526527, 70190104, 6360601, 7717387, 897084763 #### [facility] [address] [place] [address] RBC (Bld) [#/Vol] 4.7 E12/L Normal 4.3-5.9 [facility] Comment on above: Performed By: #### 2 121097, 31325178, 7698451, 2775296, 852439906 #### [facility] [address] [place] [address] WBC corrected for nucl RBC Auto (Bld) [#/Vol] 8.8 E9/L Normal 4.0-11.0 [facility] Comment on above: Performed By: #### 2 981132, 31878208, 0647873, 1129445, 718303081 #### [facility] [address] [place] [id number] CHEMISTRYOrdered By: SYSTEM SYSTEM on 02-21-2023 Anion [...] (Bld) [Mass fraction] 8.6 % High <=5.9% [facility] ChemAutoSS Consent for Treatmenton 01-30 Consent for Treatment [id number] 35#1.00CD:127 Normal [facility] HEMATOLOGYOrdered By: SYSTEM SYSTEM on 02-21-2023 Basophils/100 [...] 4.7 E12/L Normal 4.3 - 5.9 E12/L [facility] HemeAutoSS WBC corrected for nucl RBC Auto (Bld) [#/Vol] 8.8 E9/L Normal 4.0 - 11.0 E9/L [facility] HemeAutoSS [id number] 02-21-2023 HbA1c (Bld) [Mass fraction] 8.6 % High <=5.9 [facility] Comment on above: Performed By: #### 2 752436, 76631012, 1647450, 1974519, 236570080 #### [facility] [address] [place] [address] Physician Orderon 02-21-2023 Physician Order [id number] 5#1.00CD:127 Normal [facility] eGFRon 02-21-2023 GFR/1.73 sq M.predicted among non-blacks MDRD (S/P/Bld) [Vol rate/Area] 103 mL/min/1.73 m2 Normal >=59 [facility] Comment on above: Order Comment: Order added by Discern Expert. Result Comment: Computer Meteorologist clark kidney disease could be indicated at eGFR's of less than 60 mL/min/1.73m2. Kidney failure is indicated at less than 15 mL/min/1.73m2. Performed By: #### 2 422786, 63418660, 4617541, 3694873, 241205613 #### [facility] [address] [place] [address] CT WRIST RT WO CONon 023 CT [...] by: TG CASTANEDA Date: 2022-07-12 15:18 Normal [facility] Vital Signs Date Time Vital Sign Value Performing Clinician Facility 09-12-2023 15:16-0400 Body height 152.4 cm Shahnaz Mcdermott MD Work Phone: [facility] 09-12-2023 15:16-0400 Body mass index (BMI) [Ratio] 31.09 kg/m2 Shahnaz Mcdermott MD Work Phone: [facility] 09-12-2023 15:16-0400 Body weight 72.21 kg Shahnaz Mcdermott MD Work Phone: [facility] 09-12-2023 15:16-0400 Diastolic blood pressure 72 mm[Hg] Shahnaz Mcdermott MD Work Phone: [facility] 09-12-2023 15:16-0400 Systolic blood pressure 132 mm[Hg] Shahnaz Mcdermott MD Work Phone: [facility] 06-19-2022 18:16-0500 Diastolic blood pressure 87 mm[Hg] [facility] 06-19-2022 18:16-0500 Heart rate 91 /min [facility] 06-19-2022 18:16-0500 Mean blood pressure 106 mm[Hg] [facility] 06-19-2022 18:16-0500 Respiratory rate 17 /min [facility] 06-19-2022 18:16-0500 SaO2% (BldA) [Mass fraction] 95 % [facility] 06-19-2022 18:16-0500 Systolic blood pressure 144 mm[Hg] [facility] 06-19-2022 17:16-0500 Diastolic blood pressure 81 mm[Hg] [facility] 06-19-2022 17:16-0500 Heart rate 88 /min [facility] 06-19-2022 17:16-0500 Respiratory rate 16 /min [facility] 06-19-2022 17:16-0500 SaO2% (BldA) [Mass fraction] 96 % [facility] 06-19-2022 17:16-0500 Systolic blood pressure 149 mm[Hg] [facility] 06-19-2022 16:16-0500 Diastolic blood pressure 79 mm[Hg] [facility] 06-19-2022 16:16-0500 Heart rate 91 /min [facility] 06-19-2022 16:16-0500 Respiratory rate 17 /min [facility] 06-19-2022 16:16-0500 SaO2% (BldA) [Mass fraction] 96 % [facility] 06-19-2022 16:16-0500 Systolic blood pressure 151 mm[Hg] [facility] 06-19-2022 16:09-0500 Body temperature 98.42 [degF] [facility] Encounters Encounter Date Encounter Type Care Provider Facility Start: 04-21-2024 End: 04-21-2024 Telephone encounter Edgard Garcia MD Work Phone: [facility] Start: 09-30-2023 End: 10-01-2023 ambulatory Dalton Palomares Facility:[facility] Start: 09-30-2023 End: 09-30-2023 Patient encounter procedure Dalton Hoy [facility] Start: 09-27-2023 Chart abstracting Shahnaz little MD Work Phone: [facility] Start: 05-13-2023 End: 05-13-2023 ambulatory YOGI PETIT Not Available Start: 05-07-2023 End: 05-08-2023 ambulatory Yogi Petit Facility:[facility] Start: 02-21-2023 End: 02-22-2023 ambulatory Tg Clark Facility:[id number] Start: 02-21-2023 End: 02-21-2023 Patient encounter procedure Tg Olivera Otfmarla [facility] Start: 07-16-2022 End: 07-17-[address] DALTON PALOMARES Facility:[facility] Start: 07-12-2022 End: 07-13-[address] DALTON PALOMARES Facility:[facility] Start: 07-06-2022 End: 07-07-[address] DALTON PALOMARES Facility:[facility] Start: 06-19-2022 End: 06-19-2022 Emergency department patient visit Melba Perry [facility] Start: 05-18-2022 End: 06-15-2022 Pre-admission assessment Dalton Palomares [facility] Procedures Date Procedure Procedure Detail Performing Clinician Start: 09-16-2023 Hemoglobin glycosyla errol a1c Dalton Palomares MD Work Phone: H/O: tubal ligation tubal Dalton Esauy Hysterectomy Dalton Palomares Other bilateral liga tion and division of fallopian tubes Dalton Palomares Plan of Treatment Date Care Activity Detail Author Start: 09-11-2024 Adult BMI Screening Adult BMI Screening [facility] Start: 05-20-2024 End: 05-20-2024 Patient encounter procedure 05/20/2024 1:40 PM EST Office Visit [facility] [address] [place] [address] Edgard Garcia MD [address] [place] [address] [facility] Start: 10-07-2023 End: 10-07-2023 Patient encounter procedure 10/07/2023 10:00 AM EDT [facility] [address] [place] [phone] Shahnaz Mcdermott MD [address] [place] [address] [facility] Start: 03-01-2023 Influenza vaccination Influenza Vaccine [facility] Start: 2018 Administration of varicella zoster vaccine Zoster (Shingles) Vaccine (1 of 2) [facility] Start: 1989 Screening for malignant neoplasm of cervix Pap Smear [facility] Start: 1987 DTaP,Tdap and Td Vaccines (1 - Tdap) DTaP,Tdap and Td Vaccines (1 - Tdap) [facility] Start: 1986 Adult BMI Follow Up Plan Adult BMI Follow Up Plan [facility] Start: 1986 Diabetic foot examination Diabetic Foot Exam [facility] Start: 1980 [facility] Screening [facility] Start: 1980 Tobacco Screening Tobacco Screening [facility] Start: 1968 Glaucoma screening Diabetic Ophthalmology Exam [facility] Start: 1968 Tobacco Counseling Tobacco Counseling [facility] tem Payers Date Payer Category Payer Medicaid [facility] O [id number] 2023-Present [phone] [address] [place] [address] [id number] 2022 Medicaid [id number] 2016 Private Health Insurance [facility]ICA[facility] [id number] 1968 Unknown [id number] [id number]. 593 1968 Unknown [id number] [id number]. 593 1968 Unknown [id number] [id number]. 593 1968 Unknown [id number] [id number]. 356 1968 Unknown [id number] [id number]. 1259 1968 Unknown [id number] 2.16.840.1.088080.3.579.2. 727 1968 Unknown [id number] [id number]. 727 1968 Unknown [id number] [id number]. 727 1959 Unknown [id number] Social History Date Type Detail Facility Start: 03-26-2018 End: 06-19-2022 Tobacco smoking status Heavy tobacco smoker (finding) [facility] Start: 05-13-2023 End: 09-27-2023 Sex Assigned At Female [facility] Start: 09-27-2023 Tobacco smoking status DEIS Smokes tobacco daily [facility] History of tobacco use [facility] Start: 02-06-2023 End: 09-27-2023 Tobacco use and exposure Smokeless tobacco non-user [facility] Start: 05-13-2023 End: 09-27-2023 History of Social function [facility] Start: 1970 Sex Assigned At Not on file [facility] Start: 02-06-2023 Tobacco smoking status NHIS Occasional tobacco smoker [facility] Start: 05-13-2023 Alcoholic beverage intake Lifetime non-drinker (finding) [facility] Start: 03-08-2023 Alcohol Comment caffeine 1-2 c ups per day; soda/coffee [facility] Start: 1970 Sex assigned at Female [facility] Start: 11-20-2022 Gender identity Identifies as female gender (finding) [facility] NEGATED: Highlighted rowStart: NINF History of tobacco use Passive smoker [facility] Medical Equipment Procedure Code Equipment Code Equipment Origin al Text Equipment Identifier Dates TEST 6 TIMES A DAY Start: 09-29-2022 Functional Status Date Assessment Result Facility 06-19-2022 Functional Status N/A [facility] Clinical Notes 06-19-2022 to 04-21-2024 Telephone Encounter - Ann Panchal LPN - 04/21/2024 2:27 PM EDTTelephone Encounter - Ann Panchal LPN - 04/21/2024 2:27 PM EDT Note Date & Type Note Facility 04-21-2024 Telephone encount er Note I SPOKE WITH THE PT AND ADVISED HER SHE DOES NEED DIABETIC EDUCATION THANKS. [facility] 04-21-2024 Miscellaneous Notes Formattin g of this note might be different from the original. I SPOKE WITH THE PT AND ADVISED HER SHE DOES NEED DIABETIC EDUCATION THANKS. PA needed for omnipods INDER, please expedite. She's on her last pod. documented in this encounter [facility] 04-21-2024 Telephone encount er Note PA needed for omnipods INDER, please expedite. She's on her last pod. [facility] 09-30-2023 Evaluation + Plan note Diagnostic Tests PendingUrine Culture 09/30/23 [facility] 07-17-2022 Note PROCEDURE: XR FOOT R T MIN 3 VIEWS COMPARISON: None. HISTORY: Pain in right foot FINDINGS: BONES:No fracture, acute abnormality, or significant arthropathy. SOFT TISSUES:Negative. No visible soft tissue swelling. EFFUSION:None visible. OTHER: Negative. IMPRESSION: No acute abnormality Electronically authenticated by: TG FIERRO Date: 2022-07-17 08:50 [facility] 07-06-2022 Note PROCEDURE: XR HAND R T [...] by: JOHN LONDONO Date: 2022-07-06 14:25 [facility] 07-06-2022 Note PROCEDURE: XR HAND R [...] by: JOHN LONDONO Date: 2022-07-06 14:25 [facility] 06-19-2022 Hospital Discharg e instructions Patient Education [...] your health care provider. General instructions Take [id number]-[id number] and prescription medicines only as told by [...] 02/18/2015 Document Revised: 05/30/2018 Document Reviewed: 01/03/2017 [employer] Patient Education 2020 [employer] Follow Up Care 06/19/2022 16:04:22 With:Dalton Palomares Address: [address] [place] [phone] (1) When:06/22/2022 18:22:44 [facility] 06-19-2022 Evaluation + Plan note Extrac errol [...] 2 View XR Wrist 3+ Views Right [facility] No data available for this section [facility] No data available for this section [facility] filedocumented in [facility] No data available for this section [facility] Summary Purpose Family History No Family History Records FoundNo Family History Records FoundNo Family History Records Found No data available for this section No Family History Records Found Advance Directives No Advanced Directives Records FoundNo Advanced Directives Records FoundNo Advanced Directives Records FoundNo Advanced Directives Records Found Additional Source Comments Patient Care team informatio n (unrecognized section and content) Marketing Manager Relationship Specialty Start Date End Date Dalton Palomares MD [address] [place] [phone] PCP - General Family Medicine 09/19/23 Marketing Manager Relationship Specialty Start Date End Date Dalton Palomares MD [address] [place] [phone] PCP - General Family Medicine 11/20/22 INFORMATION SOURCE (unrecogn ized section and content) DATE CREATED AUTHOR 07/17/2022 [facility] DATE CREATED AUTHOR AUTHOR'S ORGANIZ ATION 05/01/2023 [facility] DATE CREATED AUTHOR AUTHOR'S ORGANIZ ATION 05/14/2023 [facility] DATE CREATED AUTHOR AUTHOR'S ORGANIZ ATION 10/03/2023 [...] BE BASED ON THE PRIMARY CLINICAL RECORDS. [employer] provides no warranty or guarantee of the accuracy or completeness of information in this document.
[2024-05-18 18:06] LABS: Internal Control Within Normal Limits; Occult Blood Positive
== END 2024-05-18 17:32 | disposition home or self-care (01) ==
LOC: LAB 17:31
PROVIDERS: PCP Family Medicine; Visit Provider Family Medicine
DX: R00.2 Palpitations (principal); I10 Essential (primary) hypertension; G47.00 Insomnia, unspecified; F32.9 Major depressive disorder, single episode, unspecified
CPT/HCPCS: G0328